=== PATIENT | male | born 1935 | race Caucasian/White ===

== ENCOUNTER 2017-06-11 05:31 | Inpatient (IN) | payer MEDICARE ==
[2017-06-07 14:34] LABS: ASCORBIC ACID (UR NOT ORDER) NEG (NEG); BILIRUBIN, URINE NEGATIVE (NEG); KETONE, URINE NEGATIVE (NEG); LEUKOCYTE ESTERASE(NOT OR NEG (NEG); WBC (NOT ORDERED) (RFLEX) < 1 (0-5)
[2017-06-07 15:08] LABS: BASOPHILS 0.2 %; BASOPHILS ABSOLUTE 0.01 10/3/uL (0.0-0.16); EOSINOPHILS 3.3 %; HEMOGLOBIN 12.6 g/dL (13.6-17.8); IMMATURE GRANULOCYTES 0.3 %; IMMATURE GRANULOCYTES ABSOLUTE 0.02 10/3/uL (0.0-0.11); LYMPHOCYTES 35.4 %; LYMPHOCYTES ABSOLUTE 2.18 10/3/uL (0.67-4.30); MEAN CORPUS HGB CONC 33.7 g/dL (32.0-36.0); MEAN PLATELET VOLUME 10.3 fL (9.2-13.0); MONOCYTES 6.7 %; MONOCYTES ABSOLUTE 0.41 10/3/uL (0.21-1.20); NEUTROPHILS 54.1 %; NEUTROPHILS ABSOLUTE 3.33 10/3/uL (2.02-8.40); PLATELET COUNT 175 10/3/uL (150-400); RED CELL COUNT 4.58 10/6/uL (4.7-6.1); WHITE BLOOD CELLS 6.2 10/3/uL (4.5-10.5)
[2017-06-07 15:11] LABS: INTERNATIONAL NORMAL RATI 1.1 UNITS (-); PARTIAL THROMBO TIME 26.3 SEC (22.5-37.2); PROTIME (NOT ORD) 14.2 SEC (12.0-14.5)
[2017-06-07 15:12] LABS: HEMATOCRIT 37.4 % (40.0-51.0); MANUAL DIFF NO %; MEAN CORPUSCULAR HEMOGLOB 27.5 pg (26.0-34.0); MEAN CORPUSCULAR VOLUME 81.7 fL (80-100); RBC DISTRIBUTION WIDTH 18.3 % (12.0-16.0)
[2017-06-07 15:17] LABS: A/G RATIO 1.1 (0.7-1.9); ALBUMIN 3.7 G/DL (3.5-5.0); ALKALINE PHOSPHATASE 67 U/L (45-117); BUN (BLOOD UREA NITROGEN) 13 MG/DL (6-23); CALCIUM, SERUM 9.1 MG/DL (8.5-10.4); CHLORIDE, SERUM 103 MMOL/L (96-112); CO2 (CARBON DIOXIDE) 30 MMOL/L (24-34); CREATININE 0.97 MG/DL (0.70-1.30); GFR AFRICAN AMERICAN 83 ML/MIN (>=60); GFR NON AFRICAN AMERICAN 72 ML/MIN (>=60); GLOBULIN 3.4 G/DL (2.5-4.1); GLUCOSE, SERUM 101 MG/DL (60-99); POTASSIUM, SERUM 3.4 MMOL/L (3.5-5.3); SGOT(AST) 18 U/L (5-40); SGPT(ALT) 26 U/L (5-65); SODIUM, SERUM 141 MMOL/L (135-148); TOTAL BILIRUBIN 0.4 MG/DL (0-1.2); TOTAL PROTEIN 7.1 G/DL (6.0-8.5)
[~2017-06-11] VITALS: Ht 170.2 cm; Wt 93.9 kg
--- NOTE | ~2017-06-11 | CN ---
Consultation Report [facility] [address] [place] [address] NAME: DOMINIC BISHOP : 33 STATUS : ADM IN [facility]#: [id number] AGE: 81 ADM/REG DATE : 06/11/17 MR#: [id number] REPORT SERV DATE: 06/20/17 DICTATED BY: KINJAL HAN DATE: 06/19/17 REPORT STATUS : Draft TRANSCRIBED BY: MODL DATE: 06/19/17 DATE OF CONSULTATION: 06/19/2017 The patient is an 81-year-old white male who last week underwent gastric resection for gastric tumor and Soni-en-Y. He was taken back to the OR today because of increasing evidence of abdominal anastomotic leak. It was reoperated, minimal peritonitis; however, drains were placed. Now in the ICU on mechanical ventilation and Levophed for blood pressure at /minute. The patient had originally presented with some weight loss and evidence of abdominal mass. Your record has been reviewed. The patient currently in the ICU. ZEYNEP/DELGADO Kinjal Han M.D. / [id number] CC: Mani Moreland Jr., M.D.
--- NOTE | ~2017-06-11 | CN ---
Consultation Report [facility] [address] [place]. [address] NAME: DOMINIC BISHOP : 33 STATUS : ADM IN PAT#: [id number] AGE: 81 ADM/REG DATE : 06/11/17 MR#: [id number] REPORT SERV DATE: 06/20/17 DICTATED BY: CARLOS FLANNERY DATE: 06/19/17 REPORT STATUS : Draft TRANSCRIBED BY: MODL DATE: 06/19/17 RENAL CONSULT DATE OF CONSULTATION: 06/19/2017 REASON FOR CONSULT: Regarding acute kidney injury. BRIEF HISTORY OF PRESENT ILLNESS: An 81-year-old white male with a history of coronary artery disease, hypertension, and gastric cancer, who underwent total gastrectomy with Soni- en-Y esophagojejunostomy on 06/11/2017 with postop course complicated by increasing left- sided abdominal pain, leukocytosis, today with a CT scan revealing an anastomotic leak, requiring emergent exploratory laparotomy and repair. The patient was noted to have a decreasing urine output over the last two days with a creatinine rise from 0.7 yesterday to 1.7 today, and we are called for further evaluation and management of renal dysfunction. Creatinine currently up to 2.2 with a relatively stable electrolytes. Currently, intubated and sedated and unable to provide history, on Levophed at 10 mcg/kg per minute. PAST MEDICAL HISTORY: 1. Hypertension. 2. Coronary artery disease. 3. Hyperlipidemia. 4. Basal cell carcinoma. 5. Herpes zoster. 6. History of renal cyst. SURGICAL HISTORY: Includes: 1. PTCA in 1994. 2. Gastric cancer with resection, 06/11/2017 complicated by anastomotic leak. SOCIAL HISTORY: Per records, and lives with family. He is retired. One alcohol drink every two weeks. Former smoker. FAMILY HISTORY: No history of renal disease is noted. REVIEW OF SYSTEMS: Unable to obtain. PHYSICAL EXAMINATION: VITAL SIGNS: Temperature is 98.1; blood pressure 110/52, on Levophed 10 mcg/kg per minute; heart rate 78 to 100; respiratory rate is 18 to 22. GENERAL: Acutely ill white male, in no distress. HEENT: Normocephalic, atraumatic. Pupils are equal. ET tube is in place. NECK: Supple. No thyromegaly. CARDIOVASCULAR: Regular rate and rhythm. No murmurs appreciated. Consultation Report [facility] [address] [place]. [address] NAME: DOMINIC BISHOP : 33 STATUS : ADM IN PAT#: [id number] AGE: 81 ADM/REG DATE : 06/11/17 MR#: [id number] REPORT SERV DATE: 06/20/17 DICTATED BY: CARLOS FLANNERY DATE: 06/19/17 REPORT STATUS : Draft TRANSCRIBED BY: DELGADO DATE: 06/19/17 RESPIRATORY: Clear to auscultation bilaterally. Normal respiratory effort. Abdomen rather is slightly distended with midline VAC pack in place. Drain is noted. No bowel sounds appreciated. EXTREMITIES: No clubbing, cyanosis, or edema. SKIN: No rashes or ulcerations appreciated. Bilateral lower extremity SCDs. NEURO: Sedated. PSYCH: Sedated. : Parson catheter in place. LABORATORY DATA: Sodium 135, potassium 4.1, chloride 101, bicarb 24, BUN is 27, creatinine 1.7, glucose is 123, calcium 8.2, magnesium is 2.2. White count 19.8 hemoglobin 10.9, platelet count is 319. AST improved from 1224 down to 105. ALT improved from 1244 down to 433. Albumin is 2.0. Urinalysis negative for blood and protein with 7 red cells, 8 white cells. Abdominal and blood cultures are pending. CT scan of abdomen and pelvis today, anastomotic leak with extraluminal oral contrast noted. ASSESSMENT AND PLAN: 1. Oliguric acute kidney injury with baseline creatinine 0.7, multifactorial ATN with sepsis, hypotension in the setting of ADIN inhibitor. Agree with holding ADIN inhibitor therapy. Discontinue amlodipine and labetalol. Support blood pressure with Levophed. Check urine studies. The patient is 2 L positive today, fluid balance and will plan to give single dose of SPA followed by diuretic challenge to attempt to convert to . No acute need for renal replacement therapy at this time. 2. Gastric cancer, status post total gastrectomy with Soni-en-Y esophagojejunostomy. 3. Septic shock secondary to peritonitis from anastomotic leak, currently on empiric antibiotics and renally dosed. 4. Anastomotic leak with repair, exploratory laparotomy, postop day #0. 5. Anemia, transfusing now. 6. Respiratory failure. Critical care following. Discussed with Dr. Han and nurse. ANGI/DELGADO Carlos Flannery M.D. / [id number] CC: Jerri Khan Jr., M.D.
--- NOTE | ~2017-06-11 | OP ---
Record Of Operation [facility] [address] [place]. [address] NAME: DOMINIC BISHOP : 33 STATUS : ADM IN PAT#: [id number] AGE: 81 ADM/REG DATE : 06/11/17 MR#: [id number] REPORT SERV DATE: 06/20/17 DICTATED BY: SAAD GRIFFIN JR. DATE: 06/19/17 REPORT STATUS : Draft TRANSCRIBED BY: DELGADO DATE: 06/19/17 DATE OF PROCEDURE: 06/19/2017 PARADI OPERATOR: Hunter Cazares. PROCEDURE: Re-exploration of recent laparotomy with repair esophagoenterostomy and T-tube placement in the area and drain placement. PREOPERATIVE DIAGNOSIS: Esophagogastric leak. POSTOPERATIVE DIAGNOSIS: Esophagogastric leak. ANESTHESIA: General. INDICATIONS: The patient has history of carcinoma of the stomach. He underwent exploration approximately eight days ago for an ulcerated mass for which preoperative biopsies were nondiagnostic who was found to have a carcinoma that was obstructing the stomach and total gastrectomy was performed for local regional treatment. He also had lymphadenectomy and also repair of an umbilical hernia. 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 He had reconstruction with a Soni-en-Y esophagojejunostomy, his postop course was satisfactory, and on postop day #4, he underwent a Gastrografin study which showed a patent anastomosis and no leak. His nasogastric tube was removed. He was started on clear liquids and advanced slowly. He tolerated the diet well. He did have drains placed which are draining serous fluid. The day prior to this operation, his drains were removed and afterwards he began to have abdominal pain. This worsened, source of elevated white count, and then he had a CT scan with contrast which showed a leak of contrast from the anastomosis without significant collection. There was flow into the jejunum with no obstruction. Because of continued pain and concern for sepsis reoperation was indicated. FINDINGS: On x-rays the abdomen, there was murky fluid in the upper abdomen and fluid in the right upper quadrant had some minimal bile stain. There was also some fluid in the pelvis. There was some evidence of localized peritonitis in the left upper quadrant. There were evidence of disruption and anastomosis on the left side with a small opening. With exposure this actually enlarged as the esophageal tissue especially was quite friable. Attempts were made to repair this. It was felt appropriate to repair this over T2 as this was high risk for continued leak and to control the drainage would be appropriate, therefore a 20-Italian G tube was placed for control an extensive drainage. DESCRIPTION OF PROCEDURE: With adequate general anesthesia, the patient was placed in supine position. The abdomen was prepped and sterilely. The previous midline incision was reopened incision deepened down through the subcutaneous tissues. The previous fascial closure was opened. The peritoneal cavity was explored with the above-noted findings. Cultures were obtained of the fluid and these were submitted and was irrigated and aspirated and bladder findings were encountered. As noted, with attempts to repair of the injury and exposed this, there was some further disruption manifested by the friability of esophageal Record Of Operation [address] [place]. [address] NAME: DOMINIC BISHOP : 33 STATUS : ADM IN [facility]#: [id number] AGE: 81 ADM/REG DATE : 06/11/17 MR#: [id number] REPORT SERV DATE: 06/20/17 DICTATED BY: SAAD GRIFFIN JR. DATE: 06/19/17 REPORT STATUS : Draft TRANSCRIBED BY: DELGADO DATE: 06/19/17 tissue. Ultimately interrupted sutures of 2-0 silk were placed to approximate the esophagus and a jejunal limb and this was done over a 20-Italian T-tube. This was brought out through the left upper quadrant with a stab incision. This was to control the fistula. Then three drains were left, two from the left and one from the right. The left from the subphrenic spaces ending at the anastomosis and one from the right was in the subhepatic space ending at the anastomosis. The remainder of the bowel was examined. There was no evidence of any obstruction or other areas of leak. Then, the drains were secured at the exit site with 2-0 nylon sutures and the wound was closed with a running 0 PDS and bhargav for the skin and an overlay Prevena dressing was placed. The estimated blood loss was 50 mL. The patient was transported to the ICU in critical, but stable condition and the procedure would be repair of esophagojejunal anastomosis. EMILIANA/DELGADO Saad Griffin Jr., M.D. / [id number] CC: Saad Griffin Jr., M.D.
--- NOTE | ~2017-06-11 | OP ---
Record Of Operation [facility] [address] [place]. [address] NAME: DOMINIC BISHOP : 33 STATUS : ADM IN [facility]#: [id number] AGE: 81 ADM/REG DATE : 06/11/17 MR#: [id number] REPORT SERV DATE: 06/21/17 DICTATED BY: JUS SUTHERLAND DATE: 06/21/17 REPORT STATUS : Draft TRANSCRIBED BY: MODPeace DATE: 06/21/17 DATE OF PROCEDURE: 06/21/2017 PREOPERATIVE DIAGNOSIS: Acute kidney injury. POSTOPERATIVE DIAGNOSIS: Acute kidney injury. PROCEDURE: Right IJ Vas-Cath. DISTRIBUTION WAREHOUSE MANAGER: None. ANESTHESIA: Local. INDICATIONS: The patient is an 81-year-old gentleman, who underwent a gastrectomy that was complicated by leak. I placed a Vas-Cath yesterday, but it is not working well. Thus, he was consented for intervention. DESCRIPTION OF PROCEDURE: After informed consent was obtained from the patient's , the patient's right neck was prepped and draped in the usual sterile fashion. Ultrasound-guided access was obtained of the right internal jugular vein. The ultrasound image documented on the chart. I passed a wire centrally. I made a small skin incision. I dilated the tract. I inserted a 15-cm Vas-Cath. I confirmed that it aspirated and flushed well. A sterile dressing was applied. The patient tolerated the procedure well without any intraprocedural complications noted. MARCUS/DELGADO Jus Sutherland M.D. / [id number] CC: Mani Moreland Jr., M.D.
--- NOTE | ~2017-06-11 | OP ---
Record Of Operation [facility] [address] [place]. [address] NAME: DOMINIC BISHOP : 33 STATUS : ADM IN [facility]#: [id number] AGE: 81 ADM/REG DATE : 06/11/17 MR#: [id number] REPORT SERV DATE: 06/21/17 DICTATED BY: JUS SUTHERLAND DATE: 06/20/17 REPORT STATUS : Draft TRANSCRIBED BY: MODPeace DATE: 06/20/17 DATE OF PROCEDURE: 06/20/2017 PREOPERATIVE DIAGNOSIS: Acute kidney injury. POSTOPERATIVE DIAGNOSIS: Acute kidney injury. PROCEDURE: Left IJ Vas-Cath. SURGEON: Jus Sutherland M.D. FROZEN FOOD DEPARTMENT MANAGER: None. ANESTHESIA: Local. INDICATIONS: The patient is a gentleman who had a gastrectomy complicated by a leak. He now has acute kidney injury, and so he was consented for Vas-Cath placement. DESCRIPTION OF PROCEDURE: After informed consent was obtained, the patient's left neck was prepped and draped in the usual sterile fashion. Ultrasound-guided access was obtained of the left internal jugular vein. The ultrasound image was documented on the chart. I passed a wire centrally. I made a small skin incision. I dilated the tract. I inserted a 20-cm Vas-Cath. It aspirated and flushed well. It was sutured in place. A sterile dressing was applied. The patient tolerated the procedure well without any intraprocedural complications noted. I will obtain a chest x-ray to confirm proper placement. SCHOOL CHILDCARE ATTENDANT/DELGADO Jus Sutherland M.D. / [id number] CC: Mani Moreland Jr., M.D.
--- NOTE | ~2017-06-11 | CN ---
Consultation Report [facility] [address] [place]. [address] NAME: DOMINIC BISHOP : 33 STATUS : ADM IN [facility]#: [id number] AGE: 81 ADM/REG DATE : 06/11/17 MR#: [id number] REPORT SERV DATE: 06/20/17 DICTATED BY: KNIJAL HAN DATE: 06/19/17 REPORT STATUS : Draft TRANSCRIBED BY: MODPeace DATE: 06/19/17 CONSULTATION DATE OF CONSULTATION: 06/19/2017 TIME: 2020 hours, seen in Medical ICU postop. REQUESTED BY: Mani Moreland M.D. HISTORY OF PRESENT ILLNESS: The patient is an 81-year-old white male who on 06/11 underwent gastric resection for gastric cancer, Soni-en-Y incision. He was doing well, developed some abdominal discomfort today, and began to look septic. CT scan showed an anastomotic leak, and was taken back to the OR, this was corrected, and mild peritonitis was noted. Drains were placed. Currently in the ICU on mechanical ventilation and 6 mcg/min of Levophed for blood pressure control. PAST MEDICAL HISTORY: Significant for coronary artery disease in the past, non-Q-wave [place] in 1994, PTCA, hyperlipidemia, hypertension, basal cell carcinoma, herpes zoster, and history of renal cyst. SOCIAL HISTORY: He is , lives with family. He has 3 to 4 cups coffee daily, occasionally 1 alcoholic beverage every week or two. FAMILY HISTORY: Significant for hypertension, heart attack in parents. ALLERGIES: ALLERGIC TO PENICILLIN. MEDICATIONS: Currently include Norvasc 5 mg p.o. daily, subcu heparin 5000 units q.8 h, hydrochlorothiazide 12.5 mg p.o. daily, Trandate 50 mg p.o. b.i.d., Prinivil 40 mg p.o. daily, and Zocor 20 mg p.o. REVIEW OF SYSTEMS: Noted above, otherwise negative and noncontributory. PHYSICAL EXAMINATION: VITAL SIGNS: Current blood pressure is 104/41, pulse is 105, afebrile, sat 100% on 100%. HEAD: Normocephalic. Sclerae and conjunctivae clear. NECK: Supple. CHEST: Decreased breath sounds. No wheezing or rhonchi. CARDIAC: S1 and S2. No murmurs or gallops. ABDOMEN: Dressed. Multiple drains in place. EXTREMITIES: No clubbing, cyanosis, or edema. Pulses palpable. Good capillary refill. NEUROLOGIC: He is currently sedated and still under effects of anesthesia. Consultation Report [facility] [address] [place]. [address] NAME: DOMINIC BISHOP : 33 STATUS : ADM IN PAT#: [id number] AGE: 81 ADM/REG DATE : 06/11/17 MR#: [id number] REPORT SERV DATE: 06/20/17 DICTATED BY: KINJAL HAN DATE: 06/19/17 REPORT STATUS : Draft TRANSCRIBED BY: MODL DATE: 06/19/17 LABORATORY DATA: Arterial blood gas; pH of 7.21, pCO2 of 47, PO2 298, base excess -9.3 on 100% at 2005 hours. UA was basically negative except for [address] of abdomen and pelvis noted. Electrolytes done this morning show sodium 135, potassium 4.1, chloride 101, CO2 of 24, BUN 27, creatinine 1.67 which is up from 0.74 on the day prior to surgery. On his second surgery, his glucose was 123, calcium 8.2, magnesium 2.2. CBC showed an H and H of 10.9 and 32.8, white count 19,800, and platelets 319,000. No diff done. Chest x-ray is clear, 3 view. [address]ubes are in place. IMPRESSION: 1. Status post reoperation for anastomotic leak which is corrected, drains placed, mild peritonitis. 2. Sepsis with some septic shock. 3. Acute renal insufficiency. 4. History of gastric cancer. PLAN: 1. Attempt to lower FiO2. 2. Monitor fluid intake and output. 3. Attempt to lower Levophed. 4. Attempt to begin weaning in the morning. Continue present antibiotic therapy. RP/MODL Kinjal Han M.D. / [id number] CC: Mani Moreland Jr., M.D.
--- NOTE | ~2017-06-11 | OP ---
Record Of Operation [facility] [address] [place]. [address] NAME: DOMINIC BISHOP : 33 STATUS : ADM IN PAT#: [id number] AGE: 81 ADM/REG DATE : 06/11/17 MR#: [id number] REPORT SERV DATE: 06/11/17 DICTATED BY: SAAD GRIFFIN JR. DATE: 06/11/17 REPORT STATUS : Draft TRANSCRIBED BY: DELGADO DATE: 06/11/17 DATE OF PROCEDURE: 06/11/2017 SMALL EQUIPMENT OPERATOR: Reza Warner. PROCEDURE: Total gastrectomy with Soni-en-Y esophagojejunostomy, retroperitoneal lymph node dissection, and feeding jejunostomy tube placement. PREOPERATIVE DIAGNOSIS: Carcinoma of the stomach. POSTOPERATIVE DIAGNOSIS: Carcinoma of the stomach. ANESTHESIA: General. INDICATIONS: The patient presented with anemia and pain. He was found to have an ulcerated mass in the stomach. He had endoscopic biopsy, which was nondiagnostic and then had endoscopic ultrasound and biopsy, which again was nondiagnostic. Additional workup included a PET scan which showed a mass which was very hot and consistent with a malignant tumor. There was no evidence of any distant metastatic disease and exploration for appropriate gastrectomy was indicated. FINDINGS: On x-rays of the abdomen, there was no evidence of any ascites, peritoneal lesions, and no palpable hepatic lesions. There was a mass located within the body of the stomach at the lesser curve, this is a fairly large mass extended up somewhat proximally. Again, there was no evidence of any palpable adenopathy or local extension. Because of the location and nature of the tumor, a total gastrectomy was indicated for definitive treatment. This was performed along with appropriate node dissection including the omentum, the perigastric nodes, and also nodes along the hepatoduodenal ligament, and the pre-pyloric nodes and the nodes down to the celiac axis. Final staging is deferred to permanent section. This did show a carcinoma confirmed by touch prep and visualization with negative margins, therefore reconstruction was performed with a Soni-en-Y esophagojejunostomy and feeding J-tube was placed. DESCRIPTION OF PROCEDURE: With adequate general anesthesia, the patient was placed in supine position. The abdomen was prepped and draped sterilely. An upper midline incision was made. The dissection was carried down sharply through the subcutaneous tissues. The fascia and peritoneum were opened. The peritoneal cavity was entered, and the above-noted findings were encountered subsequently by elevating the omentum from the transverse colon and then entering the plane between the mesocolon and the stomach. Bleeders were controlled with electrocautery and also with the EnSeal device. This was carried down to divide the short gastrics and mobilized the esophagus to hiatus. Then, the lesser omentum was divided from the liver down to hepatoduodenal ligament where tissue anterior to the portal vein was dissected back to the area of the gastroduodenal artery. Then, the left gastric was dissected from its origin and was clamped and divided securing with double ligatures of silk. The duodenum was freed up, and then divided with a BRAIN 75, and with division of the right gastric vessels, the stomach was mobilized up to the esophageal hiatus where Record Of Operation [facility] [address] [facility] [place]. [address] NAME: DOMINIC BISHOP : 31 STATUS : ADM IN [facility]#: [id number] AGE: 81 ADM/REG DATE : 06/11/17 MR#: [id number] REPORT SERV DATE: 06/11/17 DICTATED BY: SAAD GRIFFIN JR. DATE: 06/11/17 REPORT STATUS : Draft TRANSCRIBED BY: DELGADO DATE: 06/11/17 mobilization of the stomach was performed. The vagus nerves were cut, and the esophagus was divided distally. This enabled to remove the specimen that was submitted to Pathology with no results. Then the small bowel was divided distal to the ligament of Treitz, partial division of the mesentery, mobilize the distal limb that was brought through a rent in the transverse mesocolon up for the anastomosis where an end-to-side esophagojejunostomy with interrupted 3-0 silk sutures. the anastomosis into the jejunal limb. 45 cm distal to this, an enteroenterostomy was created with a BRAIN 75 and an open end was closed with TA 60, and this was reinforced with sutures 3-0 silk. Distal to this, a feeding J-tube was placed. A 16-Slovenian T-Tube was utilized. It was put through a jejunotomy with a pursestring suture of silk and brought out through a left-sided stab incision where it was secured with nylon suture. The jejunum was sewed to the overlying peritoneum with suture of 3-0 silk. Then, two 19 Abel drains were left, one from the left and right. The right was in the subhepatic space, its tip just lateral to the anastomosis and the one from the left was left in the posterior anastomosis. The anastomosis was sprayed with Evicel fibrin glue. Again, all remaining areas of surgical dissection were inspected and found to be hemostatic. The liver was normal as was the gallbladder and the remaining small bowel and colon. Then, after thorough irrigation, assurance of hemostasis, the wound was closed by approximating the fascia with running 0 PDS suture, subcutaneous tissues with Vicryl, skin with dermal Monocryl. An overlay of negative pressure dressing was placed. The drains were secured with nylon. The patient left the operating room in satisfactory condition. ESTIMATED BLOOD LOSS: 75 mL. EMILIANA/DELGADO Saad Griffin Jr., M.D. / [id number] CC: Saad Griffin Jr., M.D.
--- NOTE | ~2017-06-11 | CN ---
Consultation Report [facility] [address] [place]. [address] NAME: DOMINIC BISHOP : 31 STATUS : ADM IN PAT#: [id number] AGE: 81 ADM/REG DATE : 06/11/17 MR#: [id number] REPORT SERV DATE: 06/22/17 DICTATED BY: RYAN ONEILL DATE: 06/22/17 REPORT STATUS : Draft TRANSCRIBED BY: MODL DATE: 06/22/17 INFECTIOUS DISEASE CONSULT DATE OF CONSULTATION: ATTENDING PHYSICIAN: Dr. Mani Moreland. REASON FOR CONSULT: Antibiotic management of peritonitis. HISTORY OF PRESENT ILLNESS: 81 years old white male with history of coronary artery disease, myocardial infarction, hypertension, hyperlipidemia, psoriasis, was found to have a gastric mass. On the 11 of June, he had an elective surgery by Dr. Mani Moreland with gastrectomy and lymph nodes resection. Also Soni-en-Y esophagojejunostomy, J-tube placement, and repair of umbilical hernia. 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 Reportedly the patient did okay postop but after the NG tube was removed and surgical drains were removed and the patient was allowed to start some oral intake, he developed abdominal pain, leukocytosis, and a CT scan showed some anastomotic leakage is with contrast around the liver. He was taken to the operating room on the 19 of June in an attempt to repair the leakage but the esophageal tissue was very friable and the opening actually increased during the surgery, so a T-type tube was placed to control the drainage as well as some other drain tubes. There is evidence of a "murky fluid" in the left upper quadrant and some right upper quadrant fluid with some minimal bile staining. There is evidence of localized peritonitis in the left upper quadrant, so there are 2 drains put and beside the T-shaped drain, 2 on the left and 1 on the right. The left ones are in the subphrenic space into the anastomosis and the one on the right is in the subhepatic space and to the anastomosis. Postop the patient developed hypotension, acute renal insufficiency, and now he is on CRRT, on a ventilator and on 2 pressors. He has a right IJ central line, a right IJ Vas-Cath, and the right femoral arterial line. Initially a left IJ Vas-Cath was placed but it had to be moved. Yesterday, he was started on feeding through the J-tube. A right side drain has still significant amount of bilious fluid drainage. The left-side drains have small amounts of dark bloody fluid. The T-tube does not have any drainage today. PAST MEDICAL HISTORY: As I mentioned above plus psoriasis and hyperlipidemia and basal cell carcinoma. FAMILY HISTORY: Breast cancer. SOCIAL HISTORY: He is . Consultation Report [address] [place]. [address] NAME: DOMIINC BISHOP : 33 STATUS : ADM IN [facility]#: [id number] AGE: 81 ADM/REG DATE : 06/11/17 MR#: [id number] REPORT SERV DATE: 06/22/17 DICTATED BY: RYAN ONEILL DATE: 06/22/17 REPORT STATUS : Draft TRANSCRIBED BY: DELGADO DATE: 06/22/17 ALLERGIES: THE THINKS THAT A LONG TIME AGO, PENICILLIN CAUSED HIVES. MEDICATIONS ON ADMISSION: Aspirin; vitamin D3; hydrochlorothiazide; labetalol; lisinopril; metoprolol; and Zocor. PHYSICAL EXAMINATION: GENERAL: On exam, he is intubated, sedated. HEART: Regular rhythm. LUNGS: Decreased sounds but clear to auscultation anteriorly and laterally. We could not turn the patient because he is on CRRT and access is sensitive. ABDOMEN: Obviously tender to palpation mostly on the right but also on the lower abdomen and some on the left. The patient is grimacing. He also is grimacing when I tried to move his legs. He has scrotal ecchymosis. He has multiple drains as I listed above. He has a right femoral line. He has 2 right IJ lines and a Parson catheter. I do not see any lesions over his legs. INVESTIGATIONS: Blood cultures 3 days ago were negative. C. diff test yesterday was negative. Procalcitonin 2 days ago was 122. ABGs today pH 7.47, pCO2 of 27, PO2 of 92, bicarb 19, saturation 96%. Labs today, creatinine 1.7, bilirubin of 2.5. WBC 19 hemoglobin 9.8, platelets 140, segments 61, bands 28, ALT 81, and AST 2600. IMAGING: Chest x-ray with left base atelectasis. ASSESSMENT AND PLAN: 1. Peritonitis secondary to esophagojejunostomy, anastomotic leak. 2. 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 3. Sepsis with multiorgan failure requiring CRRT ventilator pressors. 4. Elevated liver enzymes. 5. Coronary artery disease, hypertension, psoriasis. He had exploratory laparotomy 3 days ago with attempt to anastomotic leak repair and drains placement. Operative culture grew Citrobacter and strep viridans. There is no growth of fungi. The patient has been getting vancomycin, Levaquin, and Flagyl which would be okay. But we could try to attempt monotherapy such as with Zosyn. I discussed with the in presence of unit pharmacist and she agreed with penicillin allergy testing. If that is negative, we could change the antibiotic to Zosyn. Also given his tenuous condition, we would like to re-culture the patient. He is also suggest getting a PICC line and discontinuing the right IJ central line since he has another line there in the same spot. Please monitor the liver enzymes. I discussed with the and the patient. I have explained the condition and they had the opportunity to ask questions. I discussed with the ID pharmacist along with the nurse. Consultation Report [place] [id number] [facility] [place]. [address] NAME: DOMINIC BISHOP : 33 STATUS : ADM IN [facility]#: [id number] AGE: 81 ADM/REG DATE : 06/11/17 MR#: [id number] REPORT SERV DATE: 06/22/17 DICTATED BY: RYAN ONEILL DATE: 06/22/17 REPORT STATUS : Draft TRANSCRIBED BY: DEGLADO DATE: 06/22/17 PC/DELGADO Ryan Oneill M.D. / [id number] CC: Mani Moreland Jr., M.D. UNKNOWN
--- NOTE | ~2017-06-11 | OP ---
Record Of Operation [facility] [address] [place] [address] NAME: DOMINIC BISHOP : 31 STATUS : ADM IN [facility]#: [id number] AGE: 81 ADM/REG DATE : 06/11/17 MR#: [id number] REPORT SERV DATE: 06/21/17 DICTATED BY: KINJAL HAN DATE: 06/20/17 REPORT STATUS : Draft TRANSCRIBED BY: MODPeace DATE: 06/20/17 DATE OF PROCEDURE: TIME: 2049 hours. PROCEDURE: Right femoral arterial line. INDICATION: Placement of A-line . Informed consent obtained. Questions were answered. Time-out done. Sterile prep with ChloraPrep. Xylocaine 1% used for anesthesia. Right femoral artery entered with seeker needle. Catheter placed over guidewire via modified Seldinger technique. Good waveform achieved. Suture in place. Sterile technique used throughout. The patient tolerated the procedure well. ZEYNEP/DELGADO Kinjal Han M.D. / [id number] CC: Mani Moreland Jr., M.D.
[~2017-06-11 05:31] MED LIST: ASAB PO; HYDROCHLOROT12.5 MG PO; LISINOPRIL40 MG PO; LOP50 PO; TRANDAT100 PO; VITAMIN D31000 UNIT PO; ZOCOR20 PO
[2017-06-11 12:09] LABS: BASOPHILS 0 %; EOSINOPHILS 0.4 %; EOSINOPHILS ABSOLUTE 0.04 10/3/uL (0.0-0.53); HEMATOCRIT 33.4 % (40.0-51.0); HEMOGLOBIN 11.4 g/dL (13.6-17.8); IMMATURE GRANULOCYTES 0.4 %; IMMATURE GRANULOCYTES ABSOLUTE 0.04 10/3/uL (0.0-0.11); LYMPHOCYTES 7.8 %; LYMPHOCYTES ABSOLUTE 0.77 10/3/uL (0.67-4.30); MANUAL DIFF NO %; MEAN CORPUS HGB CONC 34.1 g/dL (32.0-36.0); MEAN CORPUSCULAR HEMOGLOB 27.5 pg (26.0-34.0); MEAN CORPUSCULAR VOLUME 80.5 fL (80-100); MEAN PLATELET VOLUME 9.7 fL (9.2-13.0); MONOCYTES 3.7 %; MONOCYTES ABSOLUTE 0.37 10/3/uL (0.21-1.20); NEUTROPHILS 87.7 %; NEUTROPHILS ABSOLUTE 8.68 10/3/uL (2.02-8.40); PLATELET COUNT 148 10/3/uL (150-400); RBC DISTRIBUTION WIDTH 18.4 % (12.0-16.0); RED CELL COUNT 4.15 10/6/uL (4.7-6.1); WHITE BLOOD CELLS 9.9 10/3/uL (4.5-10.5)
[2017-06-11 12:21] LABS: BUN (BLOOD UREA NITROGEN) 13 MG/DL (6-23); CALCIUM, SERUM 8.4 MG/DL (8.5-10.4); CHLORIDE, SERUM 106 MMOL/L (96-112); CREATININE 0.98 MG/DL (0.70-1.30); GFR AFRICAN AMERICAN 82 ML/MIN (>=60); GFR NON AFRICAN AMERICAN 71 ML/MIN (>=60); SODIUM, SERUM 139 MMOL/L (135-148)
[2017-06-11 12:23] LABS: CO2 (CARBON DIOXIDE) 22 MMOL/L (24-34); GLUCOSE, SERUM 165 MG/DL (60-99); POTASSIUM, SERUM 4.1 MMOL/L (3.5-5.3)
[2017-06-12 04:58] LABS: BASOPHILS 0 %; EOSINOPHILS 0 %; HEMATOCRIT 32.3 % (40.0-51.0); HEMOGLOBIN 11.1 g/dL (13.6-17.8); IMMATURE GRANULOCYTES 0.2 %; IMMATURE GRANULOCYTES ABSOLUTE 0.03 10/3/uL (0.0-0.11); LYMPHOCYTES ABSOLUTE 0.89 10/3/uL (0.67-4.30); MEAN CORPUS HGB CONC 34.4 g/dL (32.0-36.0); MEAN CORPUSCULAR HEMOGLOB 27.8 pg (26.0-34.0); MONOCYTES 6.5 %; MONOCYTES ABSOLUTE 0.82 10/3/uL (0.21-1.20); NEUTROPHILS 86.3 %; NEUTROPHILS ABSOLUTE 10.97 10/3/uL (2.02-8.40); PLATELET COUNT 149 10/3/uL (150-400); RBC DISTRIBUTION WIDTH 18.7 % (12.0-16.0); RED CELL COUNT 3.99 10/6/uL (4.7-6.1); WHITE BLOOD CELLS 12.7 10/3/uL (4.5-10.5)
[2017-06-12 04:59] LABS: MANUAL DIFF NO %
[2017-06-12 05:25] LABS: BUN (BLOOD UREA NITROGEN) 16 MG/DL (6-23); CALCIUM, SERUM 8.3 MG/DL (8.5-10.4); CHLORIDE, SERUM 104 MMOL/L (96-112); CREATININE 0.84 MG/DL (0.70-1.30); GFR AFRICAN AMERICAN 94 ML/MIN (>=60); GFR NON AFRICAN AMERICAN 81 ML/MIN (>=60); GLUCOSE, SERUM 134 MG/DL (60-99); POTASSIUM, SERUM 4.2 MMOL/L (3.5-5.3); SGOT(AST) 1519 U/L (5-40); SGPT(ALT) 1041 U/L (5-65); SODIUM, SERUM 137 MMOL/L (135-148); TOTAL BILIRUBIN 0.5 MG/DL (0-1.2)
[2017-06-12 05:29] LABS: A/G RATIO 1.1 (0.7-1.9); ALBUMIN 2.8 G/DL (3.5-5.0); ALKALINE PHOSPHATASE 52 U/L (45-117); CO2 (CARBON DIOXIDE) 27 MMOL/L (24-34); GLOBULIN 2.5 G/DL (2.5-4.1); TOTAL PROTEIN 5.3 G/DL (6.0-8.5)
[2017-06-13 05:43] LABS: BASOPHILS 0 %; EOSINOPHILS 0.2 %; EOSINOPHILS ABSOLUTE 0.02 10/3/uL (0.0-0.53); HEMATOCRIT 29.8 % (40.0-51.0); HEMOGLOBIN 10.2 g/dL (13.6-17.8); IMMATURE GRANULOCYTES 0.3 %; IMMATURE GRANULOCYTES ABSOLUTE 0.03 10/3/uL (0.0-0.11); LYMPHOCYTES 11.6 %; MEAN CORPUS HGB CONC 34.2 g/dL (32.0-36.0); MEAN CORPUSCULAR HEMOGLOB 28.2 pg (26.0-34.0); MEAN CORPUSCULAR VOLUME 82.3 fL (80-100); MEAN PLATELET VOLUME 9.9 fL (9.2-13.0); MONOCYTES 8.5 %; MONOCYTES ABSOLUTE 0.81 10/3/uL (0.21-1.20); NEUTROPHILS 79.4 %; NEUTROPHILS ABSOLUTE 7.55 10/3/uL (2.02-8.40); PLATELET COUNT 124 10/3/uL (150-400); RBC DISTRIBUTION WIDTH 19.2 % (12.0-16.0); RED CELL COUNT 3.62 10/6/uL (4.7-6.1); WHITE BLOOD CELLS 9.5 10/3/uL (4.5-10.5)
[2017-06-13 05:50] LABS: MANUAL DIFF NO %
[2017-06-13 05:58] LABS: ALBUMIN 2.4 G/DL (3.5-5.0); ALKALINE PHOSPHATASE 48 U/L (45-117); CALCIUM, SERUM 8.1 MG/DL (8.5-10.4); CHLORIDE, SERUM 105 MMOL/L (96-112); CO2 (CARBON DIOXIDE) 27 MMOL/L (24-34); CREATININE 0.76 MG/DL (0.70-1.30); GFR AFRICAN AMERICAN 98 ML/MIN (>=60); GFR NON AFRICAN AMERICAN 84 ML/MIN (>=60); GLOBULIN 2.5 G/DL (2.5-4.1); GLUCOSE, SERUM 132 MG/DL (60-99); POTASSIUM, SERUM 4.1 MMOL/L (3.5-5.3); SGOT(AST) 1224 U/L (5-40); SGPT(ALT) 1244 U/L (5-65); SODIUM, SERUM 137 MMOL/L (135-148); TOTAL BILIRUBIN 0.4 MG/DL (0-1.2); TOTAL PROTEIN 4.9 G/DL (6.0-8.5)
[2017-06-13 06:00] LABS: BUN (BLOOD UREA NITROGEN) 12 MG/DL (6-23)
[2017-06-14 04:13] LABS: BASOPHILS 0.1 %; BASOPHILS ABSOLUTE 0.01 10/3/uL (0.0-0.16); EOSINOPHILS 0.9 %; EOSINOPHILS ABSOLUTE 0.08 10/3/uL (0.0-0.53); HEMATOCRIT 29.5 % (40.0-51.0); HEMOGLOBIN 9.9 g/dL (13.6-17.8); IMMATURE GRANULOCYTES 0.2 %; IMMATURE GRANULOCYTES ABSOLUTE 0.02 10/3/uL (0.0-0.11); LYMPHOCYTES 15.1 %; LYMPHOCYTES ABSOLUTE 1.28 10/3/uL (0.67-4.30); MEAN CORPUS HGB CONC 33.6 g/dL (32.0-36.0); MEAN CORPUSCULAR HEMOGLOB 27.8 pg (26.0-34.0); MEAN CORPUSCULAR VOLUME 82.9 fL (80-100); MEAN PLATELET VOLUME 9.3 fL (9.2-13.0); MONOCYTES 9.3 %; MONOCYTES ABSOLUTE 0.79 10/3/uL (0.21-1.20); NEUTROPHILS 74.4 %; NEUTROPHILS ABSOLUTE 6.28 10/3/uL (2.02-8.40); PLATELET COUNT 124 10/3/uL (150-400); RBC DISTRIBUTION WIDTH 19.1 % (12.0-16.0); RED CELL COUNT 3.56 10/6/uL (4.7-6.1); WHITE BLOOD CELLS 8.5 10/3/uL (4.5-10.5)
[2017-06-14 04:19] LABS: MANUAL DIFF NO %
[2017-06-14 04:24] LABS: BUN (BLOOD UREA NITROGEN) 9 MG/DL (6-23); CALCIUM, SERUM 7.8 MG/DL (8.5-10.4); CHLORIDE, SERUM 106 MMOL/L (96-112); CO2 (CARBON DIOXIDE) 29 MMOL/L (24-34); CREATININE 0.76 MG/DL (0.70-1.30); GFR AFRICAN AMERICAN 98 ML/MIN (>=60); GFR NON AFRICAN AMERICAN 84 ML/MIN (>=60); GLUCOSE, SERUM 114 MG/DL (60-99); POTASSIUM, SERUM 4.1 MMOL/L (3.5-5.3); SODIUM, SERUM 141 MMOL/L (135-148)
[2017-06-15 05:56] LABS: BASOPHILS 0.1 %; BASOPHILS ABSOLUTE 0.01 10/3/uL (0.0-0.16); EOSINOPHILS 1.1 %; EOSINOPHILS ABSOLUTE 0.08 10/3/uL (0.0-0.53); HEMOGLOBIN 9.9 g/dL (13.6-17.8); IMMATURE GRANULOCYTES 0.4 %; IMMATURE GRANULOCYTES ABSOLUTE 0.03 10/3/uL (0.0-0.11); LYMPHOCYTES 11.2 %; LYMPHOCYTES ABSOLUTE 0.82 10/3/uL (0.67-4.30); MEAN CORPUS HGB CONC 34.1 g/dL (32.0-36.0); MEAN CORPUSCULAR VOLUME 81.9 fL (80-100); MEAN PLATELET VOLUME 9.5 fL (9.2-13.0); MONOCYTES 9.5 %; NEUTROPHILS 77.7 %; NEUTROPHILS ABSOLUTE 5.71 10/3/uL (2.02-8.40); PLATELET COUNT 150 10/3/uL (150-400); RED CELL COUNT 3.54 10/6/uL (4.7-6.1); WHITE BLOOD CELLS 7.4 10/3/uL (4.5-10.5)
[2017-06-15 05:57] LABS: MANUAL DIFF NO %
[2017-06-15 06:09] LABS: A/G RATIO 0.7 (0.7-1.9); ALKALINE PHOSPHATASE 44 U/L (45-117); BUN (BLOOD UREA NITROGEN) 7 MG/DL (6-23); CALCIUM, SERUM 7.7 MG/DL (8.5-10.4); CHLORIDE, SERUM 105 MMOL/L (96-112); CO2 (CARBON DIOXIDE) 26 MMOL/L (24-34); CREATININE 0.64 MG/DL (0.70-1.30); GFR AFRICAN AMERICAN 105 ML/MIN (>=60); GFR NON AFRICAN AMERICAN 91 ML/MIN (>=60); GLOBULIN 2.9 G/DL (2.5-4.1); GLUCOSE, SERUM 116 MG/DL (60-99); POTASSIUM, SERUM 4.1 MMOL/L (3.5-5.3); SGOT(AST) 105 U/L (5-40); SGPT(ALT) 433 U/L (5-65); SODIUM, SERUM 137 MMOL/L (135-148); TOTAL BILIRUBIN 0.8 MG/DL (0-1.2); TOTAL PROTEIN 4.9 G/DL (6.0-8.5)
[2017-06-16 06:59] LABS: BASOPHILS 0 %; EOSINOPHILS 1.7 %; EOSINOPHILS ABSOLUTE 0.12 10/3/uL (0.0-0.53); HEMATOCRIT 29.5 % (40.0-51.0); IMMATURE GRANULOCYTES 0.3 %; IMMATURE GRANULOCYTES ABSOLUTE 0.02 10/3/uL (0.0-0.11); LYMPHOCYTES 17.2 %; MEAN CORPUS HGB CONC 33.9 g/dL (32.0-36.0); MEAN CORPUSCULAR HEMOGLOB 27.6 pg (26.0-34.0); MEAN CORPUSCULAR VOLUME 81.5 fL (80-100); MEAN PLATELET VOLUME 9.4 fL (9.2-13.0); MONOCYTES 9.9 %; MONOCYTES ABSOLUTE 0.69 10/3/uL (0.21-1.20); NEUTROPHILS 70.9 %; NEUTROPHILS ABSOLUTE 4.96 10/3/uL (2.02-8.40); PLATELET COUNT 182 10/3/uL (150-400); RBC DISTRIBUTION WIDTH 19.3 % (12.0-16.0); RED CELL COUNT 3.62 10/6/uL (4.7-6.1)
[2017-06-16 07:01] LABS: MANUAL DIFF NO %
[2017-06-16 07:08] LABS: BUN (BLOOD UREA NITROGEN) 9 MG/DL (6-23); CALCIUM, SERUM 7.9 MG/DL (8.5-10.4); CHLORIDE, SERUM 108 MMOL/L (96-112); CO2 (CARBON DIOXIDE) 24 MMOL/L (24-34); CREATININE 0.63 MG/DL (0.70-1.30); GFR AFRICAN AMERICAN 106 ML/MIN (>=60); GFR NON AFRICAN AMERICAN 91 ML/MIN (>=60); GLUCOSE, SERUM 112 MG/DL (60-99); SODIUM, SERUM 140 MMOL/L (135-148)
[2017-06-17 06:30] LABS: BASOPHILS 0 %; EOSINOPHILS ABSOLUTE 0.07 10/3/uL (0.0-0.53); HEMATOCRIT 29.5 % (40.0-51.0); HEMOGLOBIN 9.9 g/dL (13.6-17.8); IMMATURE GRANULOCYTES 0.4 %; IMMATURE GRANULOCYTES ABSOLUTE 0.03 10/3/uL (0.0-0.11); LYMPHOCYTES 14.6 %; LYMPHOCYTES ABSOLUTE 1.05 10/3/uL (0.67-4.30); MEAN CORPUS HGB CONC 33.6 g/dL (32.0-36.0); MEAN CORPUSCULAR HEMOGLOB 27.6 pg (26.0-34.0); MEAN CORPUSCULAR VOLUME 82.2 fL (80-100); MEAN PLATELET VOLUME 9.3 fL (9.2-13.0); MONOCYTES 10.2 %; MONOCYTES ABSOLUTE 0.73 10/3/uL (0.21-1.20); NEUTROPHILS 73.8 %; PLATELET COUNT 190 10/3/uL (150-400); RBC DISTRIBUTION WIDTH 19.6 % (12.0-16.0); RED CELL COUNT 3.59 10/6/uL (4.7-6.1); WHITE BLOOD CELLS 7.2 10/3/uL (4.5-10.5)
[2017-06-17 06:33] LABS: MANUAL DIFF NO %
[2017-06-17 06:35] LABS: BUN (BLOOD UREA NITROGEN) 14 MG/DL (6-23); CALCIUM, SERUM 8.1 MG/DL (8.5-10.4); CHLORIDE, SERUM 107 MMOL/L (96-112); CO2 (CARBON DIOXIDE) 24 MMOL/L (24-34); CREATININE 0.73 MG/DL (0.70-1.30); GFR AFRICAN AMERICAN 99 ML/MIN (>=60); GFR NON AFRICAN AMERICAN 86 ML/MIN (>=60); GLUCOSE, SERUM 97 MG/DL (60-99); POTASSIUM, SERUM 4.1 MMOL/L (3.5-5.3); SODIUM, SERUM 139 MMOL/L (135-148)
[2017-06-18 05:24] LABS: BASOPHILS 0.1 %; BASOPHILS ABSOLUTE 0.01 10/3/uL (0.0-0.16); EOSINOPHILS 1.8 %; EOSINOPHILS ABSOLUTE 0.17 10/3/uL (0.0-0.53); HEMATOCRIT 30.6 % (40.0-51.0); HEMOGLOBIN 10.3 g/dL (13.6-17.8); IMMATURE GRANULOCYTES 0.6 %; IMMATURE GRANULOCYTES ABSOLUTE 0.06 10/3/uL (0.0-0.11); LYMPHOCYTES 13.8 %; MEAN CORPUS HGB CONC 33.7 g/dL (32.0-36.0); MEAN CORPUSCULAR HEMOGLOB 27.6 pg (26.0-34.0); MEAN PLATELET VOLUME 8.9 fL (9.2-13.0); MONOCYTES 8.9 %; MONOCYTES ABSOLUTE 0.84 10/3/uL (0.21-1.20); NEUTROPHILS 74.8 %; NEUTROPHILS ABSOLUTE 7.03 10/3/uL (2.02-8.40); PLATELET COUNT 220 10/3/uL (150-400); RED CELL COUNT 3.73 10/6/uL (4.7-6.1); WHITE BLOOD CELLS 9.4 10/3/uL (4.5-10.5)
[2017-06-18 05:25] LABS: MANUAL DIFF NO %
[2017-06-18 05:37] LABS: BUN (BLOOD UREA NITROGEN) 12 MG/DL (6-23); CALCIUM, SERUM 8.3 MG/DL (8.5-10.4); CHLORIDE, SERUM 103 MMOL/L (96-112); CO2 (CARBON DIOXIDE) 25 MMOL/L (24-34); CREATININE 0.74 MG/DL (0.70-1.30); GFR AFRICAN AMERICAN 99 ML/MIN (>=60); GFR NON AFRICAN AMERICAN 85 ML/MIN (>=60); GLUCOSE, SERUM 93 MG/DL (60-99); POTASSIUM, SERUM 3.9 MMOL/L (3.5-5.3); SODIUM, SERUM 135 MMOL/L (135-148)
[2017-06-19 06:42] LABS: BASOPHILS 0.1 %; BASOPHILS ABSOLUTE 0.01 10/3/uL (0.0-0.16); EOSINOPHILS 0.1 %; EOSINOPHILS ABSOLUTE 0.01 10/3/uL (0.0-0.53); HEMATOCRIT 32.8 % (40.0-51.0); HEMOGLOBIN 10.9 g/dL (13.6-17.8); IMMATURE GRANULOCYTES 0.4 %; IMMATURE GRANULOCYTES ABSOLUTE 0.08 10/3/uL (0.0-0.11); LYMPHOCYTES 6.8 %; LYMPHOCYTES ABSOLUTE 1.35 10/3/uL (0.67-4.30); MANUAL DIFF NO %; MEAN CORPUS HGB CONC 33.2 g/dL (32.0-36.0); MEAN CORPUSCULAR HEMOGLOB 27.4 pg (26.0-34.0); MEAN CORPUSCULAR VOLUME 82.4 fL (80-100); MEAN PLATELET VOLUME 9.5 fL (9.2-13.0); MONOCYTES ABSOLUTE 1.39 10/3/uL (0.21-1.20); NEUTROPHILS 85.6 %; NEUTROPHILS ABSOLUTE 16.92 10/3/uL (2.02-8.40); PLATELET COUNT 319 10/3/uL (150-400); RBC DISTRIBUTION WIDTH 20.4 % (12.0-16.0); RED CELL COUNT 3.98 10/6/uL (4.7-6.1); WHITE BLOOD CELLS 19.8 10/3/uL (4.5-10.5)
[2017-06-19 06:55] LABS: BUN (BLOOD UREA NITROGEN) 27 MG/DL (6-23); CALCIUM, SERUM 8.2 MG/DL (8.5-10.4); CHLORIDE, SERUM 101 MMOL/L (96-112); CO2 (CARBON DIOXIDE) 24 MMOL/L (24-34); CREATININE 1.67 MG/DL (0.70-1.30); GFR AFRICAN AMERICAN 43 ML/MIN (>=60); GFR NON AFRICAN AMERICAN 37 ML/MIN (>=60); GLUCOSE, SERUM 123 MG/DL (60-99); POTASSIUM, SERUM 4.1 MMOL/L (3.5-5.3); SODIUM, SERUM 135 MMOL/L (135-148)
[2017-06-19 12:40] LABS: ASCORBIC ACID (UR NOT ORDER) NEG (NEG); BILIRUBIN, URINE SMALL (NEG); KETONE, URINE NEGATIVE (NEG); LEUKOCYTE ESTERASE(NOT OR TRACE (NEG); WBC (NOT ORDERED) (RFLEX) 8 (0-5)
[2017-06-19 20:12] LABS: BE (BASE EXCESS) -9.3 MEQ/L (0 +/- 2.5); CARBOXYHEMOGLOBIN 0.6 % (0-3); HCO3 (ACTUAL BICARBONATE) 18.4 MEQ/L (23-27); HEMOBLOGIN CONTENT 11.6 G/DL (14-18); INSTRUMENT SERIAL # 8083; METHEMOGLOBIN 0.4 % (0-3); MODE CMV; O2 CONTENT 16.8 VOL% (18-24); OPERATOR ID 14661; PCO2 (CO2 TENSION) 47 MMHG (35-45); PO2 (O2 TENSION) 298 MMHG (79-93); SAMPLE Arterial; TIDAL VOLUME 600 ML; pH 7.21 (7.37-7.43)
[2017-06-19 20:59] LABS: ALBUMIN 2.4 G/DL (3.5-5.0); CHLORIDE, SERUM 105 MMOL/L (96-112); CO2 (CARBON DIOXIDE) 24 MMOL/L (24-34); PHOSPHORUS, SERUM 4.9 MG/DL (2.5-4.5); POTASSIUM, SERUM 3.7 MMOL/L (3.5-5.3); SODIUM, SERUM 137 MMOL/L (135-148)
[2017-06-19 21:01] LABS: CALCIUM, SERUM 6.8 MG/DL (8.5-10.4); CREATININE 2.24 MG/DL (0.70-1.30); GFR AFRICAN AMERICAN 30 ML/MIN (>=60); GFR NON AFRICAN AMERICAN 26 ML/MIN (>=60); GLUCOSE, SERUM 92 MG/DL (60-99)
[2017-06-19 21:06] LABS: INTERNATIONAL NORMAL RATI 1.8 UNITS (-); PARTIAL THROMBO TIME 33.9 SEC (22.5-37.2)
[2017-06-19 21:09] LABS: BUN (BLOOD UREA NITROGEN) 32 MG/DL (6-23)
[2017-06-19 21:12] LABS: PROTIME (NOT ORD) 20.6 SEC (12.0-14.5)
[2017-06-19 22:05] LABS: BASOPHILS 0.1 %; BASOPHILS ABSOLUTE 0.01 10/3/uL (0.0-0.16); EOSINOPHILS 0.2 %; EOSINOPHILS ABSOLUTE 0.02 10/3/uL (0.0-0.53); HEMATOCRIT 32.7 % (40.0-51.0); HEMOGLOBIN 10.7 g/dL (13.6-17.8); IMMATURE GRANULOCYTES 0.4 %; IMMATURE GRANULOCYTES ABSOLUTE 0.05 10/3/uL (0.0-0.11); LYMPHOCYTES 7.2 %; LYMPHOCYTES ABSOLUTE 0.88 10/3/uL (0.67-4.30); MEAN CORPUS HGB CONC 32.7 g/dL (32.0-36.0); MEAN CORPUSCULAR HEMOGLOB 27.3 pg (26.0-34.0); MEAN CORPUSCULAR VOLUME 83.4 fL (80-100); MEAN PLATELET VOLUME 9.6 fL (9.2-13.0); MONOCYTES 6.9 %; MONOCYTES ABSOLUTE 0.84 10/3/uL (0.21-1.20); NEUTROPHILS 85.2 %; NEUTROPHILS ABSOLUTE 10.38 10/3/uL (2.02-8.40); PLATELET COUNT 323 10/3/uL (150-400); RBC DISTRIBUTION WIDTH 20.6 % (12.0-16.0); RED CELL COUNT 3.92 10/6/uL (4.7-6.1); WHITE BLOOD CELLS 12.2 10/3/uL (4.5-10.5)
[2017-06-19 22:10] LABS: MANUAL DIFF NO %
[2017-06-19 22:55] LABS: BAND NEUTROPHILS 29 %; IMMATURE GRANS ABSOLUTE (CALC) 0.73 10/3/uL (0.0-0.11); LYMPHOCYTES 4 %; LYMPHOCYTES ABSOLUTE (CALC) 0.49 10/3/uL (0.67-4.30); METAMYELOCYTES 4 %; MONOCYTES 2 %; MONOCYTES ABSOLUTE (CALC) 0.24 10/3/uL (0.21-1.20); MYELOCYTES 2 %; NEUTROPHILS ABSOLUTE (CALC) 10.74 10/3/uL (2.02-8.40); SEGMENTED NEUTROPHIL (0) 59 %; TOTAL NUCLEATED CELLS 100
[2017-06-19 22:56] LABS: ANISOCYTOSIS 1+ (5-10/OIF) (0-5/OIF); PLATELET ESTIMATE ADQ (ADEQUATE); POIKILOCYTOSIS 1+ (5-10/OIF) (0-5/OIF); POLYCHROMASIA 1+ (2-5/OIF) (0-1/OIF)
[2017-06-20 03:22] LABS: HEMOGLOBIN 12.6 g/dL (13.6-17.8); MEAN CORPUSCULAR HEMOGLOB 27.9 pg (26.0-34.0); MEAN CORPUSCULAR VOLUME 82.3 fL (80-100); MEAN PLATELET VOLUME 9.4 fL (9.2-13.0); PLATELET COUNT 338 10/3/uL (150-400); RBC DISTRIBUTION WIDTH 19.5 % (12.0-16.0); RED CELL COUNT 4.51 10/6/uL (4.7-6.1); WHITE BLOOD CELLS 14.1 10/3/uL (4.5-10.5)
[2017-06-20 03:23] LABS: HEMATOCRIT 37.1 % (40.0-51.0); MANUAL DIFF YES %
[2017-06-20 03:32] LABS: ALBUMIN 2.5 G/DL (3.5-5.0); ALKALINE PHOSPHATASE 42 U/L (45-117); CHLORIDE, SERUM 105 MMOL/L (96-112); CPK 84 U/L (0-200); CREATININE 2.54 MG/DL (0.70-1.30); GFR AFRICAN AMERICAN 26 ML/MIN (>=60); GFR NON AFRICAN AMERICAN 22 ML/MIN (>=60); GLOBULIN 2.5 G/DL (2.5-4.1); POTASSIUM, SERUM 4.2 MMOL/L (3.5-5.3); SGOT(AST) 52 U/L (5-40); SGPT(ALT) 68 U/L (5-65); SODIUM, SERUM 134 MMOL/L (135-148)
[2017-06-20 03:33] LABS: BUN (BLOOD UREA NITROGEN) 36 MG/DL (6-23); CALCIUM, SERUM 6.7 MG/DL (8.5-10.4); CO2 (CARBON DIOXIDE) 18 MMOL/L (24-34); GLUCOSE, SERUM 142 MG/DL (60-99); PHOSPHORUS, SERUM 6.1 MG/DL (2.5-4.5); TOTAL BILIRUBIN 1.5 MG/DL (0-1.2)
[2017-06-20 03:36] LABS: ANISOCYTOSIS 1+ (5-10/OIF) (0-5/OIF); BAND NEUTROPHILS 45 %; IMMATURE GRANS ABSOLUTE (CALC) 1.13 10/3/uL (0.0-0.11); LYMPHOCYTES 5 %; LYMPHOCYTES ABSOLUTE (CALC) 0.71 10/3/uL (0.67-4.30); METAMYELOCYTES 8 %; MONOCYTES 4 %; MONOCYTES ABSOLUTE (CALC) 0.56 10/3/uL (0.21-1.20); PLATELET ESTIMATE ADQ (ADEQUATE); SEGMENTED NEUTROPHIL (0) 38 %; TOTAL NUCLEATED CELLS 100
[2017-06-20 03:51] LABS: BE (BASE EXCESS) -8.3 MEQ/L (0 +/- 2.5); CARBOXYHEMOGLOBIN 0.8 % (0-3); HCO3 (ACTUAL BICARBONATE) 15.3 MEQ/L (23-27); HEMOBLOGIN CONTENT 13.2 G/DL (14-18); INSTRUMENT SERIAL # 8083; METHEMOGLOBIN 0.4 % (0-3); MODE CMV; O2 CONTENT 17.9 VOL% (18-24); OPERATOR ID 17370; PCO2 (CO2 TENSION) 27 MMHG (35-45); PO2 (O2 TENSION) 93 MMHG (79-93); SAMPLE Arterial; pH 7.38 (7.37-7.43)
[2017-06-20 03:52] LABS: TIDAL VOLUME 600 ML
[2017-06-20 04:29] LABS: PROCALCITONIN 122.15 ng/mL (<0.5)
[2017-06-20 12:41] LABS: BUN (BLOOD UREA NITROGEN) 39 MG/DL (6-23); CHLORIDE, SERUM 105 MMOL/L (96-112); CO2 (CARBON DIOXIDE) 18 MMOL/L (24-34); CREATININE 3.03 MG/DL (0.70-1.30); GFR AFRICAN AMERICAN 21 ML/MIN (>=60); GFR NON AFRICAN AMERICAN 18 ML/MIN (>=60); GLUCOSE, SERUM 142 MG/DL (60-99); PHOSPHORUS, SERUM 5.8 MG/DL (2.5-4.5); POTASSIUM, SERUM 4.7 MMOL/L (3.5-5.3); SODIUM, SERUM 137 MMOL/L (135-148)
[2017-06-20 12:42] LABS: CALCIUM, SERUM 6.4 MG/DL (8.5-10.4)
[2017-06-20 21:02] LABS: BE (BASE EXCESS) -11.9 MEQ/L (0 +/- 2.5); CARBOXYHEMOGLOBIN 0.3 % (0-3); HCO3 (ACTUAL BICARBONATE) 12.6 MEQ/L (23-27); HEMOBLOGIN CONTENT 12.4 G/DL (14-18); INSTRUMENT SERIAL # 8083; METHEMOGLOBIN 0.4 % (0-3); MODE CMV; O2 CONTENT 16.8 VOL% (18-24); OPERATOR ID 31061; PCO2 (CO2 TENSION) 25 MMHG (35-45); PO2 (O2 TENSION) 95 MMHG (79-93); SAMPLE Arterial; TIDAL VOLUME 600 ML; pH 7.32 (7.37-7.43)
[2017-06-20 21:31] LABS: ALBUMIN 1.9 G/DL (3.5-5.0); BUN (BLOOD UREA NITROGEN) 45 MG/DL (6-23); CALCIUM, SERUM 6.3 MG/DL (8.5-10.4); CHLORIDE, SERUM 105 MMOL/L (96-112); CO2 (CARBON DIOXIDE) 17 MMOL/L (24-34); CREATININE 3.24 MG/DL (0.70-1.30); GFR AFRICAN AMERICAN 19 ML/MIN (>=60); GFR NON AFRICAN AMERICAN 17 ML/MIN (>=60); GLUCOSE, SERUM 148 MG/DL (60-99); PHOSPHORUS, SERUM 5.8 MG/DL (2.5-4.5); POTASSIUM, SERUM 4.6 MMOL/L (3.5-5.3); SODIUM, SERUM 135 MMOL/L (135-148)
[2017-06-21 03:31] LABS: MEAN CORPUS HGB CONC 34.4 g/dL (32.0-36.0); MEAN CORPUSCULAR HEMOGLOB 28.1 pg (26.0-34.0); MEAN CORPUSCULAR VOLUME 81.8 fL (80-100); MEAN PLATELET VOLUME 9.6 fL (9.2-13.0); NUCLEATED RED BLOOD CELLS 0.4 /100WBC (0-0); RBC DISTRIBUTION WIDTH 20.8 % (12.0-16.0); RED CELL COUNT 3.91 10/6/uL (4.7-6.1)
[2017-06-21 03:34] LABS: MANUAL DIFF YES %; PLATELET COUNT 231 10/3/uL (150-400)
[2017-06-21 03:44] LABS: ALBUMIN 1.8 G/DL (3.5-5.0); BUN (BLOOD UREA NITROGEN) 46 MG/DL (6-23); CHLORIDE, SERUM 104 MMOL/L (96-112); CO2 (CARBON DIOXIDE) 18 MMOL/L (24-34); CREATININE 3.21 MG/DL (0.70-1.30); GFR AFRICAN AMERICAN 20 ML/MIN (>=60); GFR NON AFRICAN AMERICAN 17 ML/MIN (>=60); GLUCOSE, SERUM 140 MG/DL (60-99); PHOSPHORUS, SERUM 6.7 MG/DL (2.5-4.5); POTASSIUM, SERUM 4.8 MMOL/L (3.5-5.3); SGOT(AST) 97 U/L (5-40); SGPT(ALT) 74 U/L (5-65); SODIUM, SERUM 136 MMOL/L (135-148); TOTAL BILIRUBIN 1.7 MG/DL (0-1.2); TOTAL PROTEIN 4.9 G/DL (6.0-8.5)
[2017-06-21 03:47] LABS: A/G RATIO 0.6 (0.7-1.9); ALKALINE PHOSPHATASE 57 U/L (45-117); CALCIUM, SERUM 6.5 MG/DL (8.5-10.4); GLOBULIN 3.1 G/DL (2.5-4.1)
[2017-06-21 03:52] LABS: BE (BASE EXCESS) -9.2 MEQ/L (0 +/- 2.5); CARBOXYHEMOGLOBIN 0.1 % (0-3); HCO3 (ACTUAL BICARBONATE) 15.3 MEQ/L (23-27); HEMOBLOGIN CONTENT 11.8 G/DL (14-18); INSTRUMENT SERIAL # 8083; METHEMOGLOBIN 0.2 % (0-3); MODE CMV; O2 CONTENT 15.7 VOL% (18-24); OPERATOR ID 13861; PCO2 (CO2 TENSION) 29 MMHG (35-45); PO2 (O2 TENSION) 80 MMHG (79-93); SAMPLE Arterial; TIDAL VOLUME 600 ML; pH 7.34 (7.37-7.43)
[2017-06-21 05:30] LABS: BAND NEUTROPHILS 36 %; LYMPHOCYTES 4 %; LYMPHOCYTES ABSOLUTE (CALC) 0.84 10/3/uL (0.67-4.30); MONOCYTES 5 %; MONOCYTES ABSOLUTE (CALC) 1.05 10/3/uL (0.21-1.20); NEUTROPHILS ABSOLUTE (CALC) 19.11 10/3/uL (2.02-8.40); SEGMENTED NEUTROPHIL (0) 55 %; TOTAL NUCLEATED CELLS 100
[2017-06-21 05:31] LABS: ANISOCYTOSIS 1+ (5-10/OIF) (0-5/OIF)
[2017-06-21 05:32] LABS: BURR CELLS 1+ (3-10/OIF) (0-2/OIF); ELLIPTOCYTES 1+ (3-10/OIF) (0-2/OIF); PLATELET ESTIMATE ADQ (ADEQUATE)
[2017-06-21 11:51] LABS: ALBUMIN 1.7 G/DL (3.5-5.0); BUN (BLOOD UREA NITROGEN) 52 MG/DL (6-23); CALCIUM, SERUM 6.5 MG/DL (8.5-10.4); CHLORIDE, SERUM 104 MMOL/L (96-112); CO2 (CARBON DIOXIDE) 16 MMOL/L (24-34); CREATININE 3.62 MG/DL (0.70-1.30); GFR AFRICAN AMERICAN 17 ML/MIN (>=60); GFR NON AFRICAN AMERICAN 15 ML/MIN (>=60); GLUCOSE, SERUM 118 MG/DL (60-99); PHOSPHORUS, SERUM 7.3 MG/DL (2.5-4.5); SODIUM, SERUM 134 MMOL/L (135-148)
[2017-06-21 22:30] LABS: HEMATOCRIT 29.1 % (40.0-51.0); MEAN CORPUS HGB CONC 34.4 g/dL (32.0-36.0); MEAN CORPUSCULAR HEMOGLOB 28.1 pg (26.0-34.0); MEAN CORPUSCULAR VOLUME 81.7 fL (80-100); MEAN PLATELET VOLUME 9.7 fL (9.2-13.0); NUCLEATED RED BLOOD CELLS 0.5 /100WBC (0-0); PLATELET COUNT 181 10/3/uL (150-400); RBC DISTRIBUTION WIDTH 21.1 % (12.0-16.0); RED CELL COUNT 3.56 10/6/uL (4.7-6.1); WHITE BLOOD CELLS 24.5 10/3/uL (4.5-10.5)
[2017-06-21 22:31] LABS: MANUAL DIFF YES %
[2017-06-21 22:39] LABS: CALCIUM, SERUM 7.1 MG/DL (8.5-10.4); CHLORIDE, SERUM 102 MMOL/L (96-112); CO2 (CARBON DIOXIDE) 18 MMOL/L (24-34); GLUCOSE, SERUM 122 MG/DL (60-99); POTASSIUM, SERUM 4.1 MMOL/L (3.5-5.3); SODIUM, SERUM 136 MMOL/L (135-148)
[2017-06-21 22:42] LABS: BUN (BLOOD UREA NITROGEN) 46 MG/DL (6-23); GFR AFRICAN AMERICAN 22 ML/MIN (>=60); GFR NON AFRICAN AMERICAN 19 ML/MIN (>=60); PHOSPHORUS, SERUM 5.2 MG/DL (2.5-4.5)
[2017-06-21 23:47] LABS: BAND NEUTROPHILS 35 %; LYMPHOCYTES 4 %; LYMPHOCYTES ABSOLUTE (CALC) 0.98 10/3/uL (0.67-4.30); MONOCYTES 3 %; MONOCYTES ABSOLUTE (CALC) 0.74 10/3/uL (0.21-1.20); NEUTROPHILS ABSOLUTE (CALC) 22.79 10/3/uL (2.02-8.40); SEGMENTED NEUTROPHIL (0) 58 %; TOTAL NUCLEATED CELLS 100
[2017-06-21 23:48] LABS: ANISOCYTOSIS 1+ (5-10/OIF) (0-5/OIF); PLATELET ESTIMATE ADQ (ADEQUATE)
[2017-06-22 00:49] LABS: TOXIC GRANULATION MOD; VACUOLATED NEUTROPHILES OCC
[2017-06-22 04:19] LABS: BE (BASE EXCESS) -3.6 MEQ/L (0 +/- 2.5); CARBOXYHEMOGLOBIN 0.3 % (0-3); HEMOBLOGIN CONTENT 11.5 G/DL (14-18); INSTRUMENT SERIAL # 35151; METHEMOGLOBIN 0.6 % (0-3); MODE CMV; O2 CONTENT 15.6 VOL% (18-24); OPERATOR ID 13861; PCO2 (CO2 TENSION) 27 MMHG (35-45); PO2 (O2 TENSION) 92 MMHG (79-93); SAMPLE Arterial; TIDAL VOLUME 600 ML; pH 7.47 (7.37-7.43)
[2017-06-22 05:11] LABS: HEMATOCRIT 29.2 % (40.0-51.0); HEMOGLOBIN 10.3 g/dL (13.6-17.8); MEAN CORPUS HGB CONC 35.3 g/dL (32.0-36.0); MEAN CORPUSCULAR HEMOGLOB 28.7 pg (26.0-34.0); MEAN CORPUSCULAR VOLUME 81.3 fL (80-100); MEAN PLATELET VOLUME 9.9 fL (9.2-13.0); NUCLEATED RED BLOOD CELLS 0.3 /100WBC (0-0); PLATELET COUNT 166 10/3/uL (150-400); RED CELL COUNT 3.59 10/6/uL (4.7-6.1); WHITE BLOOD CELLS 21.8 10/3/uL (4.5-10.5)
[2017-06-22 05:13] LABS: MANUAL DIFF YES %
[2017-06-22 05:20] LABS: A/G RATIO 0.5 (0.7-1.9); ALBUMIN 1.5 G/DL (3.5-5.0); CALCIUM, SERUM 7.9 MG/DL (8.5-10.4); CHLORIDE, SERUM 99 MMOL/L (96-112); CO2 (CARBON DIOXIDE) 21 MMOL/L (24-34); CPK 2624 U/L (0-200); GLOBULIN 3.2 G/DL (2.5-4.1); GLUCOSE, SERUM 129 MG/DL (60-99); POTASSIUM, SERUM 3.9 MMOL/L (3.5-5.3); SGPT(ALT) 81 U/L (5-65); SODIUM, SERUM 136 MMOL/L (135-148); TOTAL PROTEIN 4.7 G/DL (6.0-8.5)
[2017-06-22 05:22] LABS: ALKALINE PHOSPHATASE 93 U/L (45-117); BUN (BLOOD UREA NITROGEN) 35 MG/DL (6-23); GFR AFRICAN AMERICAN 31 ML/MIN (>=60); GFR NON AFRICAN AMERICAN 27 ML/MIN (>=60); PHOSPHORUS, SERUM 3.7 MG/DL (2.5-4.5); SGOT(AST) 228 U/L (5-40); TOTAL BILIRUBIN 2.5 MG/DL (0-1.2)
[2017-06-22 05:35] LABS: BAND NEUTROPHILS 33 %; IMMATURE GRANS ABSOLUTE (CALC) 0.44 10/3/uL (0.0-0.11); LYMPHOCYTES 4 %; LYMPHOCYTES ABSOLUTE (CALC) 0.87 10/3/uL (0.67-4.30); METAMYELOCYTES 2 %; NEUTROPHILS ABSOLUTE (CALC) 20.49 10/3/uL (2.02-8.40); PLATELET ESTIMATE ADQ (ADEQUATE); SEGMENTED NEUTROPHIL (0) 61 %; TOTAL NUCLEATED CELLS 100
[2017-06-22 05:36] LABS: BURR CELLS 3+ (>30/OIF) (0-2/OIF); TOXIC GRANULATION MARKED
[2017-06-22 09:59] LABS: HEMATOCRIT 28.2 % (40.0-51.0); HEMOGLOBIN 9.8 g/dL (13.6-17.8); MANUAL DIFF YES %; MEAN CORPUS HGB CONC 34.8 g/dL (32.0-36.0); MEAN CORPUSCULAR HEMOGLOB 28.2 pg (26.0-34.0); MEAN PLATELET VOLUME 9.6 fL (9.2-13.0); PLATELET COUNT 140 10/3/uL (150-400); RBC DISTRIBUTION WIDTH 21.1 % (12.0-16.0); RED CELL COUNT 3.48 10/6/uL (4.7-6.1); WHITE BLOOD CELLS 19.4 10/3/uL (4.5-10.5)
[2017-06-22 10:12] LABS: CALCIUM, SERUM 8.1 MG/DL (8.5-10.4); CHLORIDE, SERUM 100 MMOL/L (96-112); CO2 (CARBON DIOXIDE) 23 MMOL/L (24-34); CREATININE 1.76 MG/DL (0.70-1.30); GFR AFRICAN AMERICAN 41 ML/MIN (>=60); GFR NON AFRICAN AMERICAN 35 ML/MIN (>=60); GLUCOSE, SERUM 138 MG/DL (60-99); POTASSIUM, SERUM 3.9 MMOL/L (3.5-5.3); SODIUM, SERUM 137 MMOL/L (135-148)
[2017-06-22 10:13] LABS: BUN (BLOOD UREA NITROGEN) 29 MG/DL (6-23)
[2017-06-22 11:01] LABS: BAND NEUTROPHILS 28 %; IMMATURE GRANS ABSOLUTE (CALC) 0.39 10/3/uL (0.0-0.11); LYMPHOCYTES 5 %; LYMPHOCYTES ABSOLUTE (CALC) 0.97 10/3/uL (0.67-4.30); METAMYELOCYTES 2 %; MONOCYTES 4 %; MONOCYTES ABSOLUTE (CALC) 0.78 10/3/uL (0.21-1.20); NEUTROPHILS ABSOLUTE (CALC) 17.27 10/3/uL (2.02-8.40); PLATELET ESTIMATE SLT DEC (ADEQUATE); SEGMENTED NEUTROPHIL (0) 61 %; TOTAL NUCLEATED CELLS 100
[2017-06-22 11:02] LABS: ANISOCYTOSIS 1+ (5-10/OIF) (0-5/OIF); POLYCHROMASIA 1+ (2-5/OIF) (0-1/OIF)
[2017-06-22 16:10] LABS: BASOPHILS 0.1 %; BASOPHILS ABSOLUTE 0.01 10/3/uL (0.0-0.16); EOSINOPHILS 0 %; HEMOGLOBIN 9.6 g/dL (13.6-17.8); IMMATURE GRANULOCYTES ABSOLUTE 0.19 10/3/uL (0.0-0.11); LYMPHOCYTES 4.6 %; LYMPHOCYTES ABSOLUTE 0.89 10/3/uL (0.67-4.30); MEAN CORPUS HGB CONC 34.3 g/dL (32.0-36.0); MEAN CORPUSCULAR HEMOGLOB 27.9 pg (26.0-34.0); MEAN CORPUSCULAR VOLUME 81.4 fL (80-100); MEAN PLATELET VOLUME 9.5 fL (9.2-13.0); MONOCYTES 6.5 %; MONOCYTES ABSOLUTE 1.25 10/3/uL (0.21-1.20); NEUTROPHILS 87.8 %; NEUTROPHILS ABSOLUTE 17.02 10/3/uL (2.02-8.40); NUCLEATED RED BLOOD CELLS 0.4 /100WBC (0-0); PLATELET COUNT 134 10/3/uL (150-400); RED CELL COUNT 3.44 10/6/uL (4.7-6.1); WHITE BLOOD CELLS 19.4 10/3/uL (4.5-10.5)
[2017-06-22 16:11] LABS: MANUAL DIFF NO %
[2017-06-22 16:22] LABS: CALCIUM, SERUM 8.2 MG/DL (8.5-10.4); CHLORIDE, SERUM 102 MMOL/L (96-112); CO2 (CARBON DIOXIDE) 26 MMOL/L (24-34); GFR AFRICAN AMERICAN 53 ML/MIN (>=60); GFR NON AFRICAN AMERICAN 46 ML/MIN (>=60); GLUCOSE, SERUM 130 MG/DL (60-99); POTASSIUM, SERUM 3.8 MMOL/L (3.5-5.3); SODIUM, SERUM 138 MMOL/L (135-148)
[2017-06-22 16:23] LABS: BUN (BLOOD UREA NITROGEN) 25 MG/DL (6-23); PHOSPHORUS, SERUM 2.5 MG/DL (2.5-4.5)
[2017-06-22 17:04] LABS: ANISOCYTOSIS 1+ (5-10/OIF) (0-5/OIF); BAND NEUTROPHILS 20 %; BASOPHILS 1 %; BASOPHILS ABSOLUTE (CALC) 0.19 10/3/uL (0.0-0.16); IMMATURE GRANS ABSOLUTE (CALC) 0.39 10/3/uL (0.0-0.11); LYMPHOCYTES 7 %; LYMPHOCYTES ABSOLUTE (CALC) 1.36 10/3/uL (0.67-4.30); METAMYELOCYTES 2 %; MONOCYTES 1 %; MONOCYTES ABSOLUTE (CALC) 0.19 10/3/uL (0.21-1.20); NEUTROPHILS ABSOLUTE (CALC) 17.27 10/3/uL (2.02-8.40); SEGMENTED NEUTROPHIL (0) 69 %; TOTAL NUCLEATED CELLS 100
[2017-06-22 17:05] LABS: GIANT PLATELET RARE; TOXIC GRANULATION 1+
[2017-06-22 17:06] LABS: POIKILOCYTOSIS 1+ (5-10/OIF) (0-5/OIF); TEARDROP SHAPED RBCS FEW (3-10/OIF)
[2017-06-22 23:28] LABS: HEMATOCRIT 28.9 % (40.0-51.0); HEMOGLOBIN 9.8 g/dL (13.6-17.8); MEAN CORPUS HGB CONC 33.9 g/dL (32.0-36.0); MEAN CORPUSCULAR HEMOGLOB 27.7 pg (26.0-34.0); MEAN CORPUSCULAR VOLUME 81.6 fL (80-100); MEAN PLATELET VOLUME 9.9 fL (9.2-13.0); NUCLEATED RED BLOOD CELLS 0.5 /100WBC (0-0); PLATELET COUNT 126 10/3/uL (150-400); RBC DISTRIBUTION WIDTH 21.1 % (12.0-16.0); RED CELL COUNT 3.54 10/6/uL (4.7-6.1); WHITE BLOOD CELLS 18.7 10/3/uL (4.5-10.5)
[2017-06-22 23:29] LABS: MANUAL DIFF YES %
[2017-06-22 23:35] LABS: BUN (BLOOD UREA NITROGEN) 24 MG/DL (6-23); CALCIUM, SERUM 8.5 MG/DL (8.5-10.4); CHLORIDE, SERUM 100 MMOL/L (96-112); CO2 (CARBON DIOXIDE) 28 MMOL/L (24-34); CREATININE 1.25 MG/DL (0.70-1.30); GFR AFRICAN AMERICAN 61 ML/MIN (>=60); GFR NON AFRICAN AMERICAN 53 ML/MIN (>=60); GLUCOSE, SERUM 141 MG/DL (60-99); POTASSIUM, SERUM 3.9 MMOL/L (3.5-5.3); SODIUM, SERUM 138 MMOL/L (135-148)
[2017-06-22 23:51] LABS: ANISOCYTOSIS 1+ (5-10/OIF) (0-5/OIF); BAND NEUTROPHILS 19 %; IMMATURE GRANS ABSOLUTE (CALC) 0.19 10/3/uL (0.0-0.11); LYMPHOCYTES 4 %; LYMPHOCYTES ABSOLUTE (CALC) 0.75 10/3/uL (0.67-4.30); METAMYELOCYTES 1 %; MONOCYTES 3 %; MONOCYTES ABSOLUTE (CALC) 0.56 10/3/uL (0.21-1.20); PLATELET ESTIMATE SLT DEC (ADEQUATE); SEGMENTED NEUTROPHIL (0) 73 %; TEARDROP SHAPED RBCS FEW (3-10/OIF); TOTAL NUCLEATED CELLS 100
[2017-06-22 23:52] LABS: TOXIC GRANULATION 1+
[2017-06-23 04:10] LABS: BE (BASE EXCESS) 2.9 MEQ/L (0 +/- 2.5); CARBOXYHEMOGLOBIN 0.3 % (0-3); HCO3 (ACTUAL BICARBONATE) 28.3 MEQ/L (23-27); HEMOBLOGIN CONTENT 10.4 G/DL (14-18); INSTRUMENT SERIAL # 8083; METHEMOGLOBIN 0.3 % (0-3); MODE CMV; O2 CONTENT 14.3 VOL% (18-24); OPERATOR ID 16503; PCO2 (CO2 TENSION) 47 MMHG (35-45); PO2 (O2 TENSION) 102 MMHG (79-93); SAMPLE Arterial; TIDAL VOLUME 600 ML
[2017-06-23 05:14] LABS: HEMATOCRIT 29.3 % (40.0-51.0); HEMOGLOBIN 9.8 g/dL (13.6-17.8); MEAN CORPUS HGB CONC 33.4 g/dL (32.0-36.0); MEAN CORPUSCULAR HEMOGLOB 27.6 pg (26.0-34.0); MEAN CORPUSCULAR VOLUME 82.5 fL (80-100); MEAN PLATELET VOLUME 9.6 fL (9.2-13.0); NUCLEATED RED BLOOD CELLS 0.8 /100WBC (0-0); PLATELET COUNT 109 10/3/uL (150-400); RBC DISTRIBUTION WIDTH 21.3 % (12.0-16.0); RED CELL COUNT 3.55 10/6/uL (4.7-6.1); WHITE BLOOD CELLS 17.9 10/3/uL (4.5-10.5)
[2017-06-23 05:17] LABS: MANUAL DIFF YES %
[2017-06-23 05:34] LABS: BAND NEUTROPHILS 39 %; LYMPHOCYTES 5 %; MONOCYTES 1 %; MONOCYTES ABSOLUTE (CALC) 0.18 10/3/uL (0.21-1.20); NEUTROPHILS ABSOLUTE (CALC) 16.83 10/3/uL (2.02-8.40); SEGMENTED NEUTROPHIL (0) 55 %; TOTAL NUCLEATED CELLS 100
[2017-06-23 05:35] LABS: A/G RATIO 0.4 (0.7-1.9); ALBUMIN 1.3 G/DL (3.5-5.0); ALKALINE PHOSPHATASE 103 U/L (45-117); ANISOCYTOSIS 1+ (5-10/OIF) (0-5/OIF); BUN (BLOOD UREA NITROGEN) 22 MG/DL (6-23); CALCIUM, SERUM 8.7 MG/DL (8.5-10.4); CHLORIDE, SERUM 100 MMOL/L (96-112); CK-MB 33.2 NG/ML; CO2 (CARBON DIOXIDE) 28 MMOL/L (24-34); CPK 1469 U/L (0-200); CREATININE 1.17 MG/DL (0.70-1.30); DIRECT BILIRUBIN 1.8 MG/DL (0.0-0.4); GFR AFRICAN AMERICAN 66 ML/MIN (>=60); GFR NON AFRICAN AMERICAN 57 ML/MIN (>=60); GLOBULIN 3.5 G/DL (2.5-4.1); GLUCOSE, SERUM 141 MG/DL (60-99); INDIRECT BILIRUBIN(NOT ORDER) 0.4 MG/DL (0.1-0.9); PHOSPHORUS, SERUM 2.4 MG/DL (2.5-4.5); PLATELET ESTIMATE SLT DEC (ADEQUATE); SGOT(AST) 200 U/L (5-40); SGPT(ALT) 75 U/L (5-65); SODIUM, SERUM 138 MMOL/L (135-148); TOTAL BILIRUBIN 2.2 MG/DL (0-1.2); TOTAL PROTEIN 4.8 G/DL (6.0-8.5); TOXIC GRANULATION 2+
[2017-06-23 05:36] LABS: POLYCHROMASIA 1+ (2-5/OIF) (0-1/OIF)
[2017-06-23 05:38] LABS: CKMB INDEX (NOT ORD) 2.3
[2017-06-23 05:54] LABS: PROCALCITONIN 41.21 ng/mL (<0.5)
[2017-06-23 10:36] LABS: HEMATOCRIT 27.3 % (40.0-51.0); HEMOGLOBIN 9.2 g/dL (13.6-17.8); MEAN CORPUS HGB CONC 33.7 g/dL (32.0-36.0); MEAN PLATELET VOLUME 9.8 fL (9.2-13.0); NUCLEATED RED BLOOD CELLS 0.7 /100WBC (0-0); PLATELET COUNT 87 10/3/uL (150-400); RBC DISTRIBUTION WIDTH 21.6 % (12.0-16.0); RED CELL COUNT 3.29 10/6/uL (4.7-6.1); WHITE BLOOD CELLS 15.8 10/3/uL (4.5-10.5)
[2017-06-23 10:37] LABS: MANUAL DIFF YES %
[2017-06-23 10:46] LABS: BUN (BLOOD UREA NITROGEN) 22 MG/DL (6-23); CALCIUM, SERUM 8.7 MG/DL (8.5-10.4); CHLORIDE, SERUM 101 MMOL/L (96-112); CO2 (CARBON DIOXIDE) 28 MMOL/L (24-34); CREATININE 1.04 MG/DL (0.70-1.30); GFR AFRICAN AMERICAN 77 ML/MIN (>=60); GFR NON AFRICAN AMERICAN 66 ML/MIN (>=60); GLUCOSE, SERUM 149 MG/DL (60-99); POTASSIUM, SERUM 3.8 MMOL/L (3.5-5.3); SODIUM, SERUM 139 MMOL/L (135-148)
[2017-06-23 10:56] LABS: BAND NEUTROPHILS 32 %; IMMATURE GRANS ABSOLUTE (CALC) 0.63 10/3/uL (0.0-0.11); LYMPHOCYTES 4 %; LYMPHOCYTES ABSOLUTE (CALC) 0.63 10/3/uL (0.67-4.30); METAMYELOCYTES 3 %; MONOCYTES 3 %; MONOCYTES ABSOLUTE (CALC) 0.47 10/3/uL (0.21-1.20); MYELOCYTES 1 %; NEUTROPHILS ABSOLUTE (CALC) 14.06 10/3/uL (2.02-8.40); SEGMENTED NEUTROPHIL (0) 57 %; TOTAL NUCLEATED CELLS 100
[2017-06-23 10:57] LABS: TOXIC GRANULATION 2+
[2017-06-23 10:58] LABS: PLATELET ESTIMATE DEC (ADEQUATE)
[2017-06-23 13:22] LABS: FREE T4 1.18 NG/DL (0.76-1.46); TROPONIN I <0.02 NG/ML (<0.05)
[2017-06-23 15:10] LABS: CARBOXYHEMOGLOBIN 0.4 % (0-3); HCO3 (ACTUAL BICARBONATE) 27.3 MEQ/L (23-27); HEMOBLOGIN CONTENT 11.1 G/DL (14-18); INSTRUMENT SERIAL # 8083; METHEMOGLOBIN 0.2 % (0-3); MODE A/C; OPERATOR ID 35784; PCO2 (CO2 TENSION) 57 MMHG (35-45); PO2 (O2 TENSION) 89 MMHG (79-93); SAMPLE Arterial; TIDAL VOLUME 500 ML
[2017-06-23 17:01] LABS: BUN (BLOOD UREA NITROGEN) 22 MG/DL (6-23); CHLORIDE, SERUM 100 MMOL/L (96-112); CO2 (CARBON DIOXIDE) 28 MMOL/L (24-34); GFR AFRICAN AMERICAN 72 ML/MIN (>=60); GFR NON AFRICAN AMERICAN 62 ML/MIN (>=60); GLUCOSE, SERUM 156 MG/DL (60-99); PHOSPHORUS, SERUM 2.7 MG/DL (2.5-4.5); POTASSIUM, SERUM 3.9 MMOL/L (3.5-5.3); SODIUM, SERUM 138 MMOL/L (135-148)
[2017-06-23 17:02] LABS: HEMATOCRIT 27.8 % (40.0-51.0); HEMOGLOBIN 9.2 g/dL (13.6-17.8); MEAN CORPUS HGB CONC 33.1 g/dL (32.0-36.0); MEAN CORPUSCULAR HEMOGLOB 27.8 pg (26.0-34.0); MEAN PLATELET VOLUME 10.5 fL (9.2-13.0); NUCLEATED RED BLOOD CELLS 1.1 /100WBC (0-0); PLATELET COUNT 93 10/3/uL (150-400); RBC DISTRIBUTION WIDTH 21.6 % (12.0-16.0); RED CELL COUNT 3.31 10/6/uL (4.7-6.1)
[2017-06-23 17:04] LABS: MANUAL DIFF YES %
[2017-06-23 17:46] LABS: BAND NEUTROPHILS 33 %; LYMPHOCYTES 12 %; LYMPHOCYTES ABSOLUTE (CALC) 2.16 10/3/uL (0.67-4.30); METAMYELOCYTES 3 %; MONOCYTES 2 %; MONOCYTES ABSOLUTE (CALC) 0.36 10/3/uL (0.21-1.20); MYELOCYTES 2 %; NEUTROPHILS ABSOLUTE (CALC) 14.58 10/3/uL (2.02-8.40); PLATELET ESTIMATE DEC (ADEQUATE); SEGMENTED NEUTROPHIL (0) 48 %; TOTAL NUCLEATED CELLS 100; TOXIC GRANULATION 2+
[2017-06-23 17:48] LABS: POLYCHROMASIA 1+ (2-5/OIF) (0-1/OIF)
[2017-06-23 22:40] LABS: HEMATOCRIT 26.5 % (40.0-51.0); HEMOGLOBIN 8.7 g/dL (13.6-17.8); MEAN CORPUS HGB CONC 32.8 g/dL (32.0-36.0); MEAN CORPUSCULAR HEMOGLOB 27.7 pg (26.0-34.0); MEAN CORPUSCULAR VOLUME 84.4 fL (80-100); MEAN PLATELET VOLUME 10.3 fL (9.2-13.0); NUCLEATED RED BLOOD CELLS 1.9 /100WBC (0-0); PLATELET COUNT 79 10/3/uL (150-400); RBC DISTRIBUTION WIDTH 21.8 % (12.0-16.0); RED CELL COUNT 3.14 10/6/uL (4.7-6.1); WHITE BLOOD CELLS 16.8 10/3/uL (4.5-10.5)
[2017-06-23 22:41] LABS: MANUAL DIFF YES %
[2017-06-23 22:46] LABS: CREATININE, URINE 29.1 MG/DL
[2017-06-23 22:48] LABS: BUN (BLOOD UREA NITROGEN) 22 MG/DL (6-23); CALCIUM, SERUM 8.8 MG/DL (8.5-10.4); CHLORIDE, SERUM 99 MMOL/L (96-112); CO2 (CARBON DIOXIDE) 28 MMOL/L (24-34); CREATININE 1.05 MG/DL (0.70-1.30); GFR AFRICAN AMERICAN 76 ML/MIN (>=60); GFR NON AFRICAN AMERICAN 65 ML/MIN (>=60); GLUCOSE, SERUM 144 MG/DL (60-99); POTASSIUM, SERUM 3.9 MMOL/L (3.5-5.3); SODIUM, SERUM 138 MMOL/L (135-148)
[2017-06-23 22:59] LABS: URINE CREAT 0.14 G/T VOL (0.6-2.8)
[2017-06-23 23:00] LABS: CREAT CLEAR (NOT ORDER) 19.2 ML/MIN (85-125); CREAT SERUM (NOT ORDER) 1.05 MG/DL (0.53-1.43)
[2017-06-23 23:52] LABS: ANISOCYTOSIS 1+ (5-10/OIF) (0-5/OIF); BAND NEUTROPHILS 29 %; EOSINOPHILS 1 %; EOSINOPHILS ABSOLUTE (CALC) 0.17 10/3/uL (0.0-0.53); LYMPHOCYTES 5 %; LYMPHOCYTES ABSOLUTE (CALC) 0.84 10/3/uL (0.67-4.30); METAMYELOCYTES 1 %; MONOCYTES 6 %; MONOCYTES ABSOLUTE (CALC) 1.01 10/3/uL (0.21-1.20); MYELOCYTES 2 %; NEUTROPHILS ABSOLUTE (CALC) 14.28 10/3/uL (2.02-8.40); PLATELET ESTIMATE DEC (ADEQUATE); POLYCHROMASIA 1+ (2-5/OIF) (0-1/OIF); SEGMENTED NEUTROPHIL (0) 56 %; TOTAL NUCLEATED CELLS 100
[2017-06-23 23:53] LABS: TOXIC GRANULATION 2+
[2017-06-24 03:45] LABS: BE (BASE EXCESS) 5.2 MEQ/L (0 +/- 2.5); CARBOXYHEMOGLOBIN 0.3 % (0-3); HCO3 (ACTUAL BICARBONATE) 30.9 MEQ/L (23-27); HEMOBLOGIN CONTENT 9.6 G/DL (14-18); INSTRUMENT SERIAL # 8083; METHEMOGLOBIN 0.1 % (0-3); MODE CMV; O2 CONTENT 13.2 VOL% (18-24); OPERATOR ID 16503; PCO2 (CO2 TENSION) 52 MMHG (35-45); PO2 (O2 TENSION) 89 MMHG (79-93); SAMPLE Arterial; TIDAL VOLUME 600 ML; pH 7.39 (7.37-7.43)
[2017-06-24 03:56] LABS: HEMATOCRIT 28.1 % (40.0-51.0); HEMOGLOBIN 9.1 g/dL (13.6-17.8); MEAN CORPUS HGB CONC 32.4 g/dL (32.0-36.0); MEAN CORPUSCULAR HEMOGLOB 27.2 pg (26.0-34.0); MEAN CORPUSCULAR VOLUME 84.1 fL (80-100); MEAN PLATELET VOLUME 10.3 fL (9.2-13.0); NUCLEATED RED BLOOD CELLS 1.5 /100WBC (0-0); PLATELET COUNT 81 10/3/uL (150-400); RBC DISTRIBUTION WIDTH 22.1 % (12.0-16.0); RED CELL COUNT 3.34 10/6/uL (4.7-6.1); WHITE BLOOD CELLS 18.9 10/3/uL (4.5-10.5)
[2017-06-24 04:03] LABS: A/G RATIO 0.3 (0.7-1.9); ALBUMIN 1.2 G/DL (3.5-5.0); ALKALINE PHOSPHATASE 93 U/L (45-117); BUN (BLOOD UREA NITROGEN) 22 MG/DL (6-23); CALCIUM, SERUM 8.8 MG/DL (8.5-10.4); CHLORIDE, SERUM 99 MMOL/L (96-112); CO2 (CARBON DIOXIDE) 28 MMOL/L (24-34); CPK 775 U/L (0-200); GFR AFRICAN AMERICAN 80 ML/MIN (>=60); GFR NON AFRICAN AMERICAN 69 ML/MIN (>=60); GLOBULIN 3.5 G/DL (2.5-4.1); GLUCOSE, SERUM 153 MG/DL (60-99); PHOSPHORUS, SERUM 2.8 MG/DL (2.5-4.5); POTASSIUM, SERUM 4.3 MMOL/L (3.5-5.3); SGOT(AST) 150 U/L (5-40); SGPT(ALT) 69 U/L (5-65); SODIUM, SERUM 140 MMOL/L (135-148); TOTAL PROTEIN 4.7 G/DL (6.0-8.5)
[2017-06-24 04:04] LABS: TOTAL BILIRUBIN 3.3 MG/DL (0-1.2)
[2017-06-24 04:09] LABS: MANUAL DIFF YES %
[2017-06-24 04:24] LABS: ANISOCYTOSIS 1+ (5-10/OIF) (0-5/OIF); BAND NEUTROPHILS 26 %; LYMPHOCYTES 8 %; LYMPHOCYTES ABSOLUTE (CALC) 1.51 10/3/uL (0.67-4.30); MONOCYTES 4 %; MONOCYTES ABSOLUTE (CALC) 0.76 10/3/uL (0.21-1.20); NEUTROPHILS ABSOLUTE (CALC) 16.63 10/3/uL (2.02-8.40); PLATELET ESTIMATE DEC (ADEQUATE); SEGMENTED NEUTROPHIL (0) 62 %; TOTAL NUCLEATED CELLS 100; TOXIC GRANULATION 2+; VACUOLATED NEUTROPHILES FEW
[2017-06-24 04:25] LABS: POLYCHROMASIA 1+ (2-5/OIF) (0-1/OIF)
[2017-06-24 15:51] LABS: ALBUMIN 1.2 G/DL (3.5-5.0); CALCIUM, SERUM 8.6 MG/DL (8.5-10.4); CHLORIDE, SERUM 98 MMOL/L (96-112); CO2 (CARBON DIOXIDE) 30 MMOL/L (24-34); CREATININE 1.17 MG/DL (0.70-1.30); GFR AFRICAN AMERICAN 66 ML/MIN (>=60); GFR NON AFRICAN AMERICAN 57 ML/MIN (>=60); GLUCOSE, SERUM 153 MG/DL (60-99); SODIUM, SERUM 137 MMOL/L (135-148)
[2017-06-24 15:52] LABS: BUN (BLOOD UREA NITROGEN) 26 MG/DL (6-23)
[2017-06-25 03:26] LABS: BE (BASE EXCESS) 4.4 MEQ/L (0 +/- 2.5); CARBOXYHEMOGLOBIN 0.2 % (0-3); HCO3 (ACTUAL BICARBONATE) 29.4 MEQ/L (23-27); HEMOBLOGIN CONTENT 9.4 G/DL (14-18); INSTRUMENT SERIAL # 8083; METHEMOGLOBIN 0.3 % (0-3); MODE CMV; O2 CONTENT 12.7 VOL% (18-24); OPERATOR ID 16503; PCO2 (CO2 TENSION) 46 MMHG (35-45); PO2 (O2 TENSION) 83 MMHG (79-93); SAMPLE Arterial; pH 7.42 (7.37-7.43)
[2017-06-25 03:27] LABS: TIDAL VOLUME 600 ML
[2017-06-25 04:02] LABS: HEMATOCRIT 25.2 % (40.0-51.0); HEMOGLOBIN 8.4 g/dL (13.6-17.8); MEAN CORPUS HGB CONC 33.3 g/dL (32.0-36.0); MEAN CORPUSCULAR HEMOGLOB 27.8 pg (26.0-34.0); MEAN CORPUSCULAR VOLUME 83.4 fL (80-100); MEAN PLATELET VOLUME 10.3 fL (9.2-13.0); PLATELET COUNT 94 10/3/uL (150-400); RED CELL COUNT 3.02 10/6/uL (4.7-6.1); WHITE BLOOD CELLS 18.3 10/3/uL (4.5-10.5)
[2017-06-25 04:05] LABS: NUCLEATED RED BLOOD CELLS 1.7 /100WBC (0-0)
[2017-06-25 04:06] LABS: MANUAL DIFF YES %
[2017-06-25 04:16] LABS: PHOSPHORUS, SERUM 3.9 MG/DL (2.5-4.5)
[2017-06-25 05:31] LABS: A/G RATIO 0.4 (0.7-1.9); ALBUMIN 1.2 G/DL (3.5-5.0); CALCIUM, SERUM 8.7 MG/DL (8.5-10.4); CHLORIDE, SERUM 97 MMOL/L (96-112); GFR AFRICAN AMERICAN 45 ML/MIN (>=60); GFR NON AFRICAN AMERICAN 39 ML/MIN (>=60); GLOBULIN 3.4 G/DL (2.5-4.1); GLUCOSE, SERUM 155 MG/DL (60-99); SGOT(AST) 147 U/L (5-40); SODIUM, SERUM 136 MMOL/L (135-148); TOTAL BILIRUBIN 3.3 MG/DL (0-1.2); TOTAL PROTEIN 4.6 G/DL (6.0-8.5)
[2017-06-25 05:33] LABS: BAND NEUTROPHILS 7 %; LYMPHOCYTES 16 %; LYMPHOCYTES ABSOLUTE (CALC) 2.93 10/3/uL (0.67-4.30); MONOCYTES 9 %; MONOCYTES ABSOLUTE (CALC) 1.65 10/3/uL (0.21-1.20); MYELOCYTES 4 %; NEUTROPHILS ABSOLUTE (CALC) 12.63 10/3/uL (2.02-8.40); PROMYELOCYTES 2 % (0); SEGMENTED NEUTROPHIL (0) 62 %; TOTAL NUCLEATED CELLS 100
[2017-06-25 05:35] LABS: ALKALINE PHOSPHATASE 115 U/L (45-117); BUN (BLOOD UREA NITROGEN) 44 MG/DL (6-23); CO2 (CARBON DIOXIDE) 27 MMOL/L (24-34); SGPT(ALT) 75 U/L (5-65)
[2017-06-25 05:43] LABS: PROCALCITONIN 30.32 ng/mL (<0.5)
[2017-06-25 17:45] LABS: CALCIUM, SERUM 8.2 MG/DL (8.5-10.4); CHLORIDE, SERUM 96 MMOL/L (96-112); CO2 (CARBON DIOXIDE) 30 MMOL/L (24-34); CREATININE 1.88 MG/DL (0.70-1.30); GFR AFRICAN AMERICAN 37 ML/MIN (>=60); GFR NON AFRICAN AMERICAN 32 ML/MIN (>=60); GLUCOSE, SERUM 145 MG/DL (60-99); POTASSIUM, SERUM 3.9 MMOL/L (3.5-5.3); SODIUM, SERUM 136 MMOL/L (135-148)
[2017-06-25 17:46] LABS: BUN (BLOOD UREA NITROGEN) 58 MG/DL (6-23)
[2017-06-26 05:07] LABS: BASOPHILS 0.3 %; BASOPHILS ABSOLUTE 0.04 10/3/uL (0.0-0.16); EOSINOPHILS 0.3 %; EOSINOPHILS ABSOLUTE 0.04 10/3/uL (0.0-0.53); HEMOGLOBIN 7.6 g/dL (13.6-17.8); IMMATURE GRANULOCYTES 3.5 %; IMMATURE GRANULOCYTES ABSOLUTE 0.54 10/3/uL (0.0-0.11); LYMPHOCYTES ABSOLUTE 0.93 10/3/uL (0.67-4.30); MEAN CORPUS HGB CONC 33.6 g/dL (32.0-36.0); MEAN CORPUSCULAR HEMOGLOB 28.3 pg (26.0-34.0); MEAN PLATELET VOLUME 9.8 fL (9.2-13.0); MONOCYTES 6.4 %; NEUTROPHILS 83.5 %; NUCLEATED RED BLOOD CELLS 0.5 /100WBC (0-0); PLATELET COUNT 119 10/3/uL (150-400); RBC DISTRIBUTION WIDTH 22.2 % (12.0-16.0); RED CELL COUNT 2.69 10/6/uL (4.7-6.1); WHITE BLOOD CELLS 15.6 10/3/uL (4.5-10.5)
[2017-06-26 05:08] LABS: HEMATOCRIT 22.6 % (40.0-51.0); MANUAL DIFF NO %
[2017-06-26 05:22] LABS: A/G RATIO 0.3 (0.7-1.9); ALBUMIN 1.1 G/DL (3.5-5.0); CALCIUM, SERUM 7.8 MG/DL (8.5-10.4); CHLORIDE, SERUM 97 MMOL/L (96-112); CO2 (CARBON DIOXIDE) 28 MMOL/L (24-34); CREATININE 1.93 MG/DL (0.70-1.30); GFR AFRICAN AMERICAN 36 ML/MIN (>=60); GFR NON AFRICAN AMERICAN 31 ML/MIN (>=60); GLOBULIN 3.6 G/DL (2.5-4.1); GLUCOSE, SERUM 171 MG/DL (60-99); POTASSIUM, SERUM 3.9 MMOL/L (3.5-5.3); PREALBUMIN 3.9 MG/DL (17.0-43.0); SGOT(AST) 105 U/L (5-40); SGPT(ALT) 60 U/L (5-65); SODIUM, SERUM 136 MMOL/L (135-148); TOTAL BILIRUBIN 3.2 MG/DL (0-1.2); TOTAL PROTEIN 4.7 G/DL (6.0-8.5)
[2017-06-26 05:25] LABS: ALKALINE PHOSPHATASE 150 U/L (45-117); BUN (BLOOD UREA NITROGEN) 73 MG/DL (6-23); PHOSPHORUS, SERUM 5.3 MG/DL (2.5-4.5); TRIGLYCERIDE 313 MG/DL (< 150)
[2017-06-26 05:30] LABS: BAND NEUTROPHILS 10 %; EOSINOPHILS 1 %; EOSINOPHILS ABSOLUTE (CALC) 0.16 10/3/uL (0.0-0.53); IMMATURE GRANS ABSOLUTE (CALC) 0.47 10/3/uL (0.0-0.11); LYMPHOCYTES 8 %; LYMPHOCYTES ABSOLUTE (CALC) 1.25 10/3/uL (0.67-4.30); METAMYELOCYTES 2 %; MONOCYTES 7 %; MONOCYTES ABSOLUTE (CALC) 1.09 10/3/uL (0.21-1.20); MYELOCYTES 1 %; NEUTROPHILS ABSOLUTE (CALC) 12.64 10/3/uL (2.02-8.40); SEGMENTED NEUTROPHIL (0) 71 %; TOTAL NUCLEATED CELLS 100
[2017-06-26 05:31] LABS: ANISOCYTOSIS 1+ (5-10/OIF) (0-5/OIF); PLATELET ESTIMATE SLT DEC (ADEQUATE); POLYCHROMASIA 1+ (2-5/OIF) (0-1/OIF); TOXIC GRANULATION 1+
[2017-06-26 13:44] LABS: HEPARIN-INDUCED PLATELET AB NEGATIVE (NEGATIVE); HIT PATIENT O.D. 0.047 OD (0.000-0.299)
[2017-06-27 04:28] LABS: HEMATOCRIT 24.2 % (40.0-51.0); HEMOGLOBIN 8.1 g/dL (13.6-17.8); MEAN CORPUS HGB CONC 33.5 g/dL (32.0-36.0); MEAN CORPUSCULAR VOLUME 83.7 fL (80-100); MEAN PLATELET VOLUME 9.6 fL (9.2-13.0); PLATELET COUNT 146 10/3/uL (150-400); RBC DISTRIBUTION WIDTH 22.6 % (12.0-16.0); RED CELL COUNT 2.89 10/6/uL (4.7-6.1); WHITE BLOOD CELLS 14.7 10/3/uL (4.5-10.5)
[2017-06-27 04:29] LABS: MANUAL DIFF YES %
[2017-06-27 04:41] LABS: ALBUMIN 1.1 G/DL (3.5-5.0); CALCIUM, SERUM 7.4 MG/DL (8.5-10.4); CHLORIDE, SERUM 103 MMOL/L (96-112); CO2 (CARBON DIOXIDE) 27 MMOL/L (24-34); CREATININE 1.99 MG/DL (0.70-1.30); GFR AFRICAN AMERICAN 35 ML/MIN (>=60); GFR NON AFRICAN AMERICAN 30 ML/MIN (>=60); GLUCOSE, SERUM 142 MG/DL (60-99); PHOSPHORUS, SERUM 4.4 MG/DL (2.5-4.5); SODIUM, SERUM 138 MMOL/L (135-148)
[2017-06-27 04:44] LABS: BUN (BLOOD UREA NITROGEN) 96 MG/DL (6-23)
[2017-06-27 04:55] LABS: BAND NEUTROPHILS 8 %; EOSINOPHILS 1 %; EOSINOPHILS ABSOLUTE (CALC) 0.15 10/3/uL (0.0-0.53); IMMATURE GRANS ABSOLUTE (CALC) 0.15 10/3/uL (0.0-0.11); LYMPHOCYTES 6 %; LYMPHOCYTES ABSOLUTE (CALC) 0.88 10/3/uL (0.67-4.30); METAMYELOCYTES 1 %; MONOCYTES 2 %; MONOCYTES ABSOLUTE (CALC) 0.29 10/3/uL (0.21-1.20); NEUTROPHILS ABSOLUTE (CALC) 13.23 10/3/uL (2.02-8.40); SEGMENTED NEUTROPHIL (0) 82 %; TOTAL NUCLEATED CELLS 100
[2017-06-27 04:56] LABS: OVALOCYTES 1+ (3-10/OIF) (0-2/OIF); POIKILOCYTOSIS 1+ (5-10/OIF) (0-5/OIF); TEARDROP SHAPED RBCS FEW (3-10/OIF); TOXIC GRANULATION 1+
[2017-06-27 04:57] LABS: MACROCYTES 1+ (5-10/OIF) (0-5/OIF); PLATELET ESTIMATE ADQ (ADEQUATE); POLYCHROMASIA 1+ (2-5/OIF) (0-1/OIF); STOMATOCYTES 1+ (3-10/OIF) (0-2/OIF)
[2017-06-28 08:15] LABS: BASOPHILS 0.2 %; BASOPHILS ABSOLUTE 0.02 10/3/uL (0.0-0.16); EOSINOPHILS 0.3 %; EOSINOPHILS ABSOLUTE 0.03 10/3/uL (0.0-0.53); HEMATOCRIT 24.9 % (40.0-51.0); HEMOGLOBIN 8.3 g/dL (13.6-17.8); IMMATURE GRANULOCYTES 1.4 %; IMMATURE GRANULOCYTES ABSOLUTE 0.15 10/3/uL (0.0-0.11); LYMPHOCYTES 5.4 %; LYMPHOCYTES ABSOLUTE 0.59 10/3/uL (0.67-4.30); MEAN CORPUS HGB CONC 33.3 g/dL (32.0-36.0); MEAN CORPUSCULAR HEMOGLOB 28.5 pg (26.0-34.0); MEAN CORPUSCULAR VOLUME 85.6 fL (80-100); MEAN PLATELET VOLUME 10.4 fL (9.2-13.0); MONOCYTES 4.7 %; MONOCYTES ABSOLUTE 0.51 10/3/uL (0.21-1.20); NEUTROPHILS ABSOLUTE 9.55 10/3/uL (2.02-8.40); RBC DISTRIBUTION WIDTH 23.5 % (12.0-16.0); RED CELL COUNT 2.91 10/6/uL (4.7-6.1); WHITE BLOOD CELLS 10.9 10/3/uL (4.5-10.5)
[2017-06-28 08:16] LABS: MANUAL DIFF NO %; PLATELET COUNT 218 10/3/uL (150-400)
[2017-06-28 09:17] LABS: PLATELET ESTIMATE ADQ (ADEQUATE)
[2017-06-28 09:18] LABS: POLYCHROMASIA 1+ (2-5/OIF) (0-1/OIF); TOXIC GRANULATION 1+
[2017-06-28 09:50] LABS: A/G RATIO 0.4 (0.7-1.9); ALBUMIN 1.4 G/DL (3.5-5.0); ALKALINE PHOSPHATASE 211 U/L (45-117); BUN (BLOOD UREA NITROGEN) 81 MG/DL (6-23); CALCIUM, SERUM 7.7 MG/DL (8.5-10.4); CHLORIDE, SERUM 111 MMOL/L (96-112); CO2 (CARBON DIOXIDE) 31 MMOL/L (24-34); CREATININE 1.61 MG/DL (0.70-1.30); DIRECT BILIRUBIN 2.5 MG/DL (0.0-0.4); GFR AFRICAN AMERICAN 45 ML/MIN (>=60); GFR NON AFRICAN AMERICAN 39 ML/MIN (>=60); GLOBULIN 3.8 G/DL (2.5-4.1); GLUCOSE, SERUM 198 MG/DL (60-99); INDIRECT BILIRUBIN(NOT ORDER) 0.8 MG/DL (0.1-0.9); PHOSPHORUS, SERUM 2.8 MG/DL (2.5-4.5); POTASSIUM, SERUM 3.2 MMOL/L (3.5-5.3); SGOT(AST) 59 U/L (5-40); SGPT(ALT) 50 U/L (5-65); SODIUM, SERUM 149 MMOL/L (135-148); TOTAL BILIRUBIN 3.3 MG/DL (0-1.2); TOTAL PROTEIN 5.2 G/DL (6.0-8.5); TRIGLYCERIDE 264 MG/DL (< 150)
[2017-06-28 10:06] LABS: PROCALCITONIN 7.83 ng/mL (<0.5)
[2017-06-29 04:37] LABS: HEMOGLOBIN 9.3 g/dL (13.6-17.8); MEAN CORPUSCULAR HEMOGLOB 28.7 pg (26.0-34.0); MEAN PLATELET VOLUME 10.3 fL (9.2-13.0); PLATELET COUNT 280 10/3/uL (150-400); RBC DISTRIBUTION WIDTH 23.4 % (12.0-16.0); RED CELL COUNT 3.24 10/6/uL (4.7-6.1); WHITE BLOOD CELLS 12.7 10/3/uL (4.5-10.5)
[2017-06-29 04:53] LABS: ALBUMIN 1.4 G/DL (3.5-5.0); CALCIUM, SERUM 8.2 MG/DL (8.5-10.4); CHLORIDE, SERUM 115 MMOL/L (96-112); CO2 (CARBON DIOXIDE) 31 MMOL/L (24-34); GFR AFRICAN AMERICAN 58 ML/MIN (>=60); GFR NON AFRICAN AMERICAN 50 ML/MIN (>=60); GLUCOSE, SERUM 176 MG/DL (60-99); HEMATOCRIT 28.2 % (40.0-51.0); MANUAL DIFF YES %; PHOSPHORUS, SERUM 2.5 MG/DL (2.5-4.5); POTASSIUM, SERUM 3.5 MMOL/L (3.5-5.3); SODIUM, SERUM 154 MMOL/L (135-148)
[2017-06-29 04:54] LABS: BUN (BLOOD UREA NITROGEN) 68 MG/DL (6-23)
[2017-06-29 05:42] LABS: SEGMENTED NEUTROPHIL (0) 73 %; TOTAL NUCLEATED CELLS 100
[2017-06-29 05:43] LABS: BAND NEUTROPHILS 17 %; EOSINOPHILS 1 %; EOSINOPHILS ABSOLUTE (CALC) 0.13 10/3/uL (0.0-0.53); HYPOCHROMIA 1+ (3-10/OIF) (0-2/OIF); LYMPHOCYTES 9 %; LYMPHOCYTES ABSOLUTE (CALC) 1.14 10/3/uL (0.67-4.30); NEUTROPHILS ABSOLUTE (CALC) 11.43 10/3/uL (2.02-8.40); PLATELET ESTIMATE ADQ (ADEQUATE); SPHEROCYTES OCC (0-2/OIF)
[2017-06-30 04:36] LABS: HEMOGLOBIN 9.6 g/dL (13.6-17.8); MANUAL DIFF YES %; MEAN CORPUSCULAR HEMOGLOB 28.1 pg (26.0-34.0); MEAN CORPUSCULAR VOLUME 87.7 fL (80-100); MEAN PLATELET VOLUME 10.3 fL (9.2-13.0); PLATELET COUNT 358 10/3/uL (150-400); RBC DISTRIBUTION WIDTH 24.2 % (12.0-16.0); RED CELL COUNT 3.42 10/6/uL (4.7-6.1); WHITE BLOOD CELLS 14.8 10/3/uL (4.5-10.5)
[2017-06-30 04:53] LABS: ALBUMIN 1.4 G/DL (3.5-5.0); CALCIUM, SERUM 8.2 MG/DL (8.5-10.4); CHLORIDE, SERUM 120 MMOL/L (96-112); CREATININE 1.16 MG/DL (0.70-1.30); GFR AFRICAN AMERICAN 67 ML/MIN (>=60); GFR NON AFRICAN AMERICAN 58 ML/MIN (>=60); GLUCOSE, SERUM 172 MG/DL (60-99); PHOSPHORUS, SERUM 2.6 MG/DL (2.5-4.5); SODIUM, SERUM 154 MMOL/L (135-148); TRIGLYCERIDE 287 MG/DL (< 150)
[2017-06-30 04:54] LABS: BUN (BLOOD UREA NITROGEN) 55 MG/DL (6-23); CO2 (CARBON DIOXIDE) 25 MMOL/L (24-34)
[2017-06-30 05:03] LABS: BAND NEUTROPHILS 3 %; BLASTS 1 % (0); IMMATURE GRANS ABSOLUTE (CALC) 0.15 10/3/uL (0.0-0.11); LYMPHOCYTES 7 %; LYMPHOCYTES ABSOLUTE (CALC) 1.04 10/3/uL (0.67-4.30); METAMYELOCYTES 1 %; MONOCYTES 2 %; NEUTROPHILS ABSOLUTE (CALC) 13.17 10/3/uL (2.02-8.40); SEGMENTED NEUTROPHIL (0) 86 %; TOTAL NUCLEATED CELLS 100
[2017-06-30 05:05] LABS: BURR CELLS 1+ (3-10/OIF) (0-2/OIF)
[2017-07-01 04:44] LABS: A/G RATIO 0.4 (0.7-1.9); ALBUMIN 1.4 G/DL (3.5-5.0); CHLORIDE, SERUM 117 MMOL/L (96-112); CO2 (CARBON DIOXIDE) 25 MMOL/L (24-34); CREATININE 1.06 MG/DL (0.70-1.30); GFR AFRICAN AMERICAN 75 ML/MIN (>=60); GFR NON AFRICAN AMERICAN 65 ML/MIN (>=60); GLOBULIN 3.9 G/DL (2.5-4.1); GLUCOSE, SERUM 163 MG/DL (60-99); PHOSPHORUS, SERUM 2.9 MG/DL (2.5-4.5); SGOT(AST) 46 U/L (5-40); SGPT(ALT) 41 U/L (5-65); SODIUM, SERUM 150 MMOL/L (135-148); TOTAL PROTEIN 5.3 G/DL (6.0-8.5)
[2017-07-01 04:46] LABS: ALKALINE PHOSPHATASE 126 U/L (45-117); BUN (BLOOD UREA NITROGEN) 50 MG/DL (6-23); TOTAL BILIRUBIN 2.4 MG/DL (0-1.2)
[2017-07-01 07:52] LABS: BASOPHILS 0.2 %; BASOPHILS ABSOLUTE 0.03 10/3/uL (0.0-0.16); EOSINOPHILS 0.9 %; EOSINOPHILS ABSOLUTE 0.11 10/3/uL (0.0-0.53); HEMATOCRIT 27.3 % (40.0-51.0); HEMOGLOBIN 8.4 g/dL (13.6-17.8); IMMATURE GRANULOCYTES 0.7 %; IMMATURE GRANULOCYTES ABSOLUTE 0.09 10/3/uL (0.0-0.11); LYMPHOCYTES 9.2 %; LYMPHOCYTES ABSOLUTE 1.11 10/3/uL (0.67-4.30); MEAN CORPUS HGB CONC 30.8 g/dL (32.0-36.0); MEAN CORPUSCULAR HEMOGLOB 27.4 pg (26.0-34.0); MEAN CORPUSCULAR VOLUME 88.9 fL (80-100); MEAN PLATELET VOLUME 10.5 fL (9.2-13.0); MONOCYTES 4.8 %; MONOCYTES ABSOLUTE 0.58 10/3/uL (0.21-1.20); NEUTROPHILS 84.2 %; NEUTROPHILS ABSOLUTE 10.17 10/3/uL (2.02-8.40); PLATELET COUNT 368 10/3/uL (150-400); RBC DISTRIBUTION WIDTH 24.4 % (12.0-16.0); RED CELL COUNT 3.07 10/6/uL (4.7-6.1); WHITE BLOOD CELLS 12.1 10/3/uL (4.5-10.5)
[2017-07-01 07:53] LABS: MANUAL DIFF NO %
[2017-07-01 08:00] LABS: PLATELET ESTIMATE ADQ (ADEQUATE)
[2017-07-01 08:03] LABS: OVALOCYTES 1+ (3-10/OIF) (0-2/OIF); SCHISTOCYTES OCC (0-2/OIF)
[2017-07-01 08:05] LABS: HYPOCHROMIA 1+ (3-10/OIF) (0-2/OIF)
[2017-07-02 04:42] LABS: HEMATOCRIT 26.8 % (40.0-51.0); HEMOGLOBIN 8.6 g/dL (13.6-17.8); MEAN CORPUS HGB CONC 32.1 g/dL (32.0-36.0); MEAN CORPUSCULAR HEMOGLOB 28.1 pg (26.0-34.0); MEAN CORPUSCULAR VOLUME 87.6 fL (80-100); PLATELET COUNT 397 10/3/uL (150-400); RBC DISTRIBUTION WIDTH 23.7 % (12.0-16.0); RED CELL COUNT 3.06 10/6/uL (4.7-6.1); WHITE BLOOD CELLS 10.9 10/3/uL (4.5-10.5)
[2017-07-02 04:43] LABS: MANUAL DIFF YES %
[2017-07-02 04:59] LABS: ALBUMIN 1.3 G/DL (3.5-5.0); BUN (BLOOD UREA NITROGEN) 44 MG/DL (6-23); CALCIUM, SERUM 7.7 MG/DL (8.5-10.4); CHLORIDE, SERUM 115 MMOL/L (96-112); CO2 (CARBON DIOXIDE) 24 MMOL/L (24-34); CREATININE 1.01 MG/DL (0.70-1.30); GFR AFRICAN AMERICAN 79 ML/MIN (>=60); GFR NON AFRICAN AMERICAN 68 ML/MIN (>=60); GLUCOSE, SERUM 145 MG/DL (60-99); POTASSIUM, SERUM 3.9 MMOL/L (3.5-5.3); SODIUM, SERUM 147 MMOL/L (135-148)
[2017-07-02 06:41] LABS: BAND NEUTROPHILS 41 %; BASOPHILS 2 %; BASOPHILS ABSOLUTE (CALC) 0.22 10/3/uL (0.0-0.16); EOSINOPHILS 2 %; EOSINOPHILS ABSOLUTE (CALC) 0.22 10/3/uL (0.0-0.53); IMMATURE GRANS ABSOLUTE (CALC) 0.11 10/3/uL (0.0-0.11); LYMPHOCYTES 9 %; LYMPHOCYTES ABSOLUTE (CALC) 0.98 10/3/uL (0.67-4.30); METAMYELOCYTES 1 %; MONOCYTES 3 %; MONOCYTES ABSOLUTE (CALC) 0.33 10/3/uL (0.21-1.20); NEUTROPHILS ABSOLUTE (CALC) 9.05 10/3/uL (2.02-8.40); PLATELET ESTIMATE ADQ (ADEQUATE); POLYCHROMASIA 1+ (2-5/OIF) (0-1/OIF); SEGMENTED NEUTROPHIL (0) 42 %; TOTAL NUCLEATED CELLS 100; TOXIC GRANULATION 1+
[2017-07-02 23:55] LABS: ALLENS TEST Pos; BE (BASE EXCESS) -3.4 MEQ/L (0 +/- 2.5); CARBOXYHEMOGLOBIN 0.8 % (0-3); DEVICE NC; HCO3 (ACTUAL BICARBONATE) 19.2 MEQ/L (23-27); HEMOBLOGIN CONTENT 8.6 G/DL (14-18); INSTRUMENT SERIAL # 8083; METHEMOGLOBIN 0.3 % (0-3); O2 CONTENT 11.5 VOL% (18-24); OPERATOR ID 33449; PCO2 (CO2 TENSION) 26 MMHG (35-45); PO2 (O2 TENSION) 74 MMHG (79-93); SAMPLE Arterial; pH 7.49 (7.37-7.43)
[2017-07-03 00:53] LABS: HEMATOCRIT 25.4 % (40.0-51.0); HEMOGLOBIN 8.4 g/dL (13.6-17.8); MEAN CORPUS HGB CONC 33.1 g/dL (32.0-36.0); MEAN CORPUSCULAR HEMOGLOB 29.3 pg (26.0-34.0); MEAN CORPUSCULAR VOLUME 88.5 fL (80-100); MEAN PLATELET VOLUME 9.8 fL (9.2-13.0); PLATELET COUNT 395 10/3/uL (150-400); RBC DISTRIBUTION WIDTH 23.9 % (12.0-16.0); RED CELL COUNT 2.87 10/6/uL (4.7-6.1); WHITE BLOOD CELLS 9.4 10/3/uL (4.5-10.5)
[2017-07-03 00:57] LABS: MANUAL DIFF YES %
[2017-07-03 01:09] LABS: A/G RATIO 0.3 (0.7-1.9); ALBUMIN 1.4 G/DL (3.5-5.0); CALCIUM, SERUM 7.5 MG/DL (8.5-10.4); CHLORIDE, SERUM 115 MMOL/L (96-112); CO2 (CARBON DIOXIDE) 23 MMOL/L (24-34); CREATININE 1.07 MG/DL (0.70-1.30); GFR AFRICAN AMERICAN 74 ML/MIN (>=60); GFR NON AFRICAN AMERICAN 64 ML/MIN (>=60); GLOBULIN 4.3 G/DL (2.5-4.1); GLUCOSE, SERUM 146 MG/DL (60-99); POTASSIUM, SERUM 4.3 MMOL/L (3.5-5.3); SGOT(AST) 40 U/L (5-40); SGPT(ALT) 36 U/L (5-65); SODIUM, SERUM 146 MMOL/L (135-148); TOTAL BILIRUBIN 2.5 MG/DL (0-1.2); TOTAL PROTEIN 5.7 G/DL (6.0-8.5)
[2017-07-03 01:10] LABS: ALKALINE PHOSPHATASE 157 U/L (45-117); BUN (BLOOD UREA NITROGEN) 40 MG/DL (6-23)
[2017-07-03 01:16] LABS: BAND NEUTROPHILS 27 %; BASOPHILS 2 %; BASOPHILS ABSOLUTE (CALC) 0.19 10/3/uL (0.0-0.16); EOSINOPHILS 2 %; EOSINOPHILS ABSOLUTE (CALC) 0.19 10/3/uL (0.0-0.53); IMMATURE GRANS ABSOLUTE (CALC) 0.09 10/3/uL (0.0-0.11); LYMPHOCYTES 11 %; LYMPHOCYTES ABSOLUTE (CALC) 1.03 10/3/uL (0.67-4.30); METAMYELOCYTES 1 %; MONOCYTES 7 %; MONOCYTES ABSOLUTE (CALC) 0.66 10/3/uL (0.21-1.20); NEUTROPHILS ABSOLUTE (CALC) 7.24 10/3/uL (2.02-8.40); PLATELET ESTIMATE ADQ (ADEQUATE); SEGMENTED NEUTROPHIL (0) 50 %; TOTAL NUCLEATED CELLS 100
[2017-07-03 01:20] LABS: PHOSPHORUS, SERUM 3.1 MG/DL (2.5-4.5)
[2017-07-03 01:24] LABS: PROCALCITONIN 1.37 ng/mL (<0.5)
[2017-07-04 05:20] LABS: CALCIUM, SERUM 7.4 MG/DL (8.5-10.4); CHLORIDE, SERUM 115 MMOL/L (96-112); CO2 (CARBON DIOXIDE) 19 MMOL/L (24-34); CREATININE 0.94 MG/DL (0.70-1.30); GFR AFRICAN AMERICAN 87 ML/MIN (>=60); GFR NON AFRICAN AMERICAN 75 ML/MIN (>=60); GLUCOSE, SERUM 154 MG/DL (60-99); PHOSPHORUS, SERUM 3.1 MG/DL (2.5-4.5); POTASSIUM, SERUM 4.3 MMOL/L (3.5-5.3); SODIUM, SERUM 143 MMOL/L (135-148)
[2017-07-04 05:25] LABS: BUN (BLOOD UREA NITROGEN) 36 MG/DL (6-23)
[2017-07-04 05:27] LABS: HEMOGLOBIN 7.9 g/dL (13.6-17.8); MEAN CORPUS HGB CONC 31.6 g/dL (32.0-36.0); MEAN CORPUSCULAR HEMOGLOB 28.3 pg (26.0-34.0); MEAN CORPUSCULAR VOLUME 89.6 fL (80-100); MEAN PLATELET VOLUME 9.8 fL (9.2-13.0); NUCLEATED RED BLOOD CELLS 0.4 /100WBC (0-0); PLATELET COUNT 377 10/3/uL (150-400); RED CELL COUNT 2.79 10/6/uL (4.7-6.1); WHITE BLOOD CELLS 8.6 10/3/uL (4.5-10.5)
[2017-07-04 05:28] LABS: MANUAL DIFF YES %
[2017-07-04 05:51] LABS: BAND NEUTROPHILS 24 %; IMMATURE GRANS ABSOLUTE (CALC) 0.17 10/3/uL (0.0-0.11); LYMPHOCYTES 17 %; LYMPHOCYTES ABSOLUTE (CALC) 1.46 10/3/uL (0.67-4.30); METAMYELOCYTES 2 %; MONOCYTES 4 %; MONOCYTES ABSOLUTE (CALC) 0.34 10/3/uL (0.21-1.20); NEUTROPHILS ABSOLUTE (CALC) 6.62 10/3/uL (2.02-8.40); SEGMENTED NEUTROPHIL (0) 53 %; TOTAL NUCLEATED CELLS 100
[2017-07-04 05:53] LABS: ANISOCYTOSIS 1+ (5-10/OIF) (0-5/OIF); PLATELET ESTIMATE ADQ (ADEQUATE)
[2017-07-04 14:06] LABS: ALLENS TEST Pos; BE (BASE EXCESS) -7.8 MEQ/L (0 +/- 2.5); CARBOXYHEMOGLOBIN 0.8 % (0-3); DEVICE NC; HCO3 (ACTUAL BICARBONATE) 16.8 MEQ/L (23-27); HEMOBLOGIN CONTENT 8.9 G/DL (14-18); INSTRUMENT SERIAL # 8083; METHEMOGLOBIN 0.3 % (0-3); O2 CONTENT 11.7 VOL% (18-24); PCO2 (CO2 TENSION) 31 MMHG (35-45); PO2 (O2 TENSION) 76 MMHG (79-93); SAMPLE Arterial; pH 7.35 (7.37-7.43)
[2017-07-04 17:27] LABS: ALLENS TEST Pos; BE (BASE EXCESS) -7.7 MEQ/L (0 +/- 2.5); INSTRUMENT SERIAL # 8083; OPERATOR ID 18801; PCO2 (CO2 TENSION) 63 MMHG (35-45); PO2 (O2 TENSION) 78 MMHG (79-93); SAMPLE Arterial; pH 7.16 (7.37-7.43)
[2017-07-04 18:14] LABS: BE (BASE EXCESS) -4.7 MEQ/L (0 +/- 2.5); CARBOXYHEMOGLOBIN 0.6 % (0-3); HCO3 (ACTUAL BICARBONATE) 20.1 MEQ/L (23-27); HEMOBLOGIN CONTENT 8.9 G/DL (14-18); INSTRUMENT SERIAL # 8083; METHEMOGLOBIN 0.3 % (0-3); O2 CONTENT 11.8 VOL% (18-24); PCO2 (CO2 TENSION) 36 MMHG (35-45); PO2 (O2 TENSION) 74 MMHG (79-93); pH 7.37 (7.37-7.43)
[2017-07-04 18:15] LABS: ALLENS TEST Pos; OPERATOR ID 18801; SAMPLE Arterial
[2017-07-05 05:01] LABS: HEMATOCRIT 26.6 % (40.0-51.0); HEMOGLOBIN 8.2 g/dL (13.6-17.8); MEAN CORPUS HGB CONC 30.8 g/dL (32.0-36.0); MEAN CORPUSCULAR HEMOGLOB 28.3 pg (26.0-34.0); MEAN CORPUSCULAR VOLUME 91.7 fL (80-100); MEAN PLATELET VOLUME 9.6 fL (9.2-13.0); PLATELET COUNT 337 10/3/uL (150-400); RBC DISTRIBUTION WIDTH 22.8 % (12.0-16.0); WHITE BLOOD CELLS 11.4 10/3/uL (4.5-10.5)
[2017-07-05 05:02] LABS: MANUAL DIFF YES %
[2017-07-05 05:17] LABS: A/G RATIO 0.3 (0.7-1.9); ALBUMIN 1.2 G/DL (3.5-5.0); CALCIUM, SERUM 8.1 MG/DL (8.5-10.4); CHLORIDE, SERUM 112 MMOL/L (96-112); GFR AFRICAN AMERICAN 64 ML/MIN (>=60); GFR NON AFRICAN AMERICAN 56 ML/MIN (>=60); GLOBULIN 4.4 G/DL (2.5-4.1); POTASSIUM, SERUM 4.6 MMOL/L (3.5-5.3); SGOT(AST) 37 U/L (5-40); SGPT(ALT) 36 U/L (5-65); SODIUM, SERUM 143 MMOL/L (135-148); TOTAL PROTEIN 5.6 G/DL (6.0-8.5)
[2017-07-05 05:19] LABS: ALKALINE PHOSPHATASE 132 U/L (45-117); BUN (BLOOD UREA NITROGEN) 46 MG/DL (6-23); CO2 (CARBON DIOXIDE) 23 MMOL/L (24-34); GLUCOSE, SERUM 102 MG/DL (60-99); TOTAL BILIRUBIN 1.9 MG/DL (0-1.2)
[2017-07-05 05:42] LABS: ANISOCYTOSIS 1+ (5-10/OIF) (0-5/OIF); BAND NEUTROPHILS 27 %; HYPOCHROMIA 1+ (3-10/OIF) (0-2/OIF); IMMATURE GRANS ABSOLUTE (CALC) 0.57 10/3/uL (0.0-0.11); LYMPHOCYTES 15 %; LYMPHOCYTES ABSOLUTE (CALC) 1.71 10/3/uL (0.67-4.30); METAMYELOCYTES 4 %; MONOCYTES 8 %; MONOCYTES ABSOLUTE (CALC) 0.91 10/3/uL (0.21-1.20); MYELOCYTES 1 %; NEUTROPHILS ABSOLUTE (CALC) 8.21 10/3/uL (2.02-8.40); PLATELET ESTIMATE ADQ (ADEQUATE); POLYCHROMASIA 1+ (2-5/OIF) (0-1/OIF); SEGMENTED NEUTROPHIL (0) 45 %; TOTAL NUCLEATED CELLS 100
== END 2017-07-10 10:09 | disposition expired | DRG 326 ==
LOC: ENRESERVTM → ENRESERV → CANRESERV → ENRESERVDT → 4SO 05:31 → IMCU 05:31 → 5SO 05:31 → SDC/OF 05:31 → MIC 05:31 → 5SO 06-12 18:09 → MIC 06-19 17:11 → IMCU 07-02 07:28 → 4SO 07-08 13:06
PROVIDERS: Internal Medicine Hepatology; Internal Medicine Nephrology; Internal Medicine Pulmonary Disease; Nurse Practitioner Family; Specialist; Surgery
PROC: 07BD0ZX Excision of Aortic Lymphatic, Open Approach, Diagnostic (ICD-10-PCS; 2017-06-11)
PROC: 0DHA3UZ Insertion of Feeding Device into Jejunum, Percutaneous Approach (ICD-10-PCS; 2017-06-11)
PROC: 0D150ZA Bypass Esophagus to Jejunum, Open Approach (ICD-10-PCS; principal; 2017-06-11 07:45)
PROC: 0DT60ZZ Resection of Stomach, Open Approach (ICD-10-PCS; 2017-06-11 07:45)
PROC: 3C1ZX8Z Irrigation of Indwelling Device using Irrigating Substance, External Approach (ICD-10-PCS; 2017-06-19)
PROC: 5A1945Z Respiratory Ventilation, 24-96 Consecutive Hours (ICD-10-PCS; 2017-06-19)
PROC: 30233N0 Transfusion of Autologous Red Blood Cells into Peripheral Vein, Percutaneous Approach (ICD-10-PCS; 2017-06-19)
PROC: 05HM33Z Insertion of Infusion Device into Right Internal Jugular Vein, Percutaneous Approach (ICD-10-PCS; 2017-06-20)
PROC: B543ZZA Ultrasonography of Right Jugular Veins, Guidance (ICD-10-PCS; 2017-06-20)
PROC: 05HM33Z Insertion of Infusion Device into Right Internal Jugular Vein, Percutaneous Approach (ICD-10-PCS; 2017-06-21)
PROC: B543ZZA Ultrasonography of Right Jugular Veins, Guidance (ICD-10-PCS; 2017-06-21)
PROC: 4A133BC Monitoring of Arterial Pressure, Coronary, Percutaneous Approach (ICD-10-PCS; 2017-06-21)
PROC: 02HV33Z Insertion of Infusion Device into Superior Vena Cava, Percutaneous Approach (ICD-10-PCS; 2017-06-25)
PROC: 3E0336Z Introduction of Nutritional Substance into Peripheral Vein, Percutaneous Approach (ICD-10-PCS; 2017-06-26)
DX: C16.9 Malignant neoplasm of stomach, unspecified (principal); K65.3 Choleperitonitis; R65.21 Severe sepsis with septic shock; N17.0 Acute kidney failure with tubular necrosis; J95.821 Acute postprocedural respiratory failure; A41.9 Sepsis, unspecified organism; E87.0 Hyperosmolality and hypernatremia; T82.338A Leakage of other vascular grafts, initial encounter; I25.10 Atherosclerotic heart disease of native coronary artery without angina pectoris; I10 Essential (primary) hypertension; Y83.2 Surgical operation with anastomosis, bypass or graft as the cause of abnormal reaction of the patient, or of later complication, without mention of misadventure at the time of the procedure; R40.2434 Glasgow coma scale score 3-8, 24 hours or more after hospital admission; E11.9 Type 2 diabetes mellitus without complications
CPT/HCPCS: 31720; 36415; 36569; 36593; 36600; 49451; 71010; 71020; 74000; 74176; 74246; 80048; 80053; 80069; 81001; 82248; 82330; 82533; 82550; 82553; 82565; 82575; 82803; 82805; 82947; 82962; 83605; 83735; 83880; 84100; 84132; 84134; 84145; 84295; 84439; 84443; 84478; 84484; 85014; 85025; 85610; 85730; 86022; 86850; 86900; 86901; 86920; 87015; 87040; 87070; 87075; 87077; 87102; 87116; 87186; 87205; 87493; 87493-59; 87641; 88302; 88309; 88331; 88333; 93005; 94002; 94003; 94640; 94660; 95018; 97110-GP; 97162-GP; 97530-GP; A9270-GY; C1751; C1752; C1769; C8929; C9113; G8978-CM-GP; G8979-CL-GP; J0282; J0610; J0690; J1205; J1956; J2248; J2250; J2270; J2370; J2405; J2540; J2543; J2710; J2997; J3010; J3370; J3475; P9016; P9045; P9047; Q9957; Q9967